=== PATIENT | male | born 1995 | race Caucasian/White ===

== ENCOUNTER 2019-06-13 11:03 | Outpatient (RCR) | payer OTHER, SELFPAY ==
--- NOTE | 2019-06-13 11:21 | BH.COMM_ITS ---
Communication Note - Communication with Client Communication Note: Met with pt to complete initial paperwork. No significant changes since pre-admission screening. Complete [place] Suicide screening and pt was currently moderate risk. No current SI, plan, or intent. Last suicidal ideation was last , 06/05/19 in which pt reports looking up different potential means of completing suicide. Last attempt was over 3 months ago in March in which pt reports taking Zoloft with the intent to walk in front of a train. Reports deciding to walk home instead and expressed that his dogs are his only protective factor. Denies access to any lethal means, reports he is able to keep himself safe at this time. Will meet with individual therapist to complete Safety plan for the weekend.
--- NOTE | 2019-06-13 11:22 | BH.MDN ---
Multi-Disciplinary Note - Note 60-min Individual Time Started:: 09:20 Date: 06/13/19 Purpose of session/treatment goals addressed:: The purpose of this session was to gather information on client's current stressors, symptoms, and treatment goals. Another goal was to build rapport and complete a safety plan. Eye Contact:: Good Motor Activity:: Appropriate Appearance:: Disheveled Speech:: Appropriate Mood:: Anxious, Dysthymic Affect:: Other - incongruent-reports feeling depressed, but often smiling and using humor to deflect. Thoughts:: Linear, Logical, No evidence of hallucinations/delusions noted Staff Interventions:: Therapist used active listening and open-ended questions to explore client's current stressors, symptoms, history, and treatment goals. Therapist used strengths perspective to build rapport and help client identify personal resilience factors. Therapist assessed for risk and completed a safety plan with client. Client Response:: Client responded well to session, open to meeting with therapist. Client receptive to discussing treatment goals and answering questions from therapist. Client reported he has been seeing Chauncey Chandler for outpatient counseling and Chauncey referred client to [facility]. Client reported he has struggled with anxiety and depression for a long time. Client stated, I've never really seen a purpose for my life. Client currently goes to college at [employer] and shared that his symptoms impact client's academic and social functioning. Client shared he will avoid people and miss class because of his anxiety and depression. Client stated he wants to learn how to better manage these symptoms and find meaning in his life. Client receptive to completing a safety plan due to recent suicidal ideations with methods. Client identified his warning signs which included; sleeping too much or not enough, ruminations, negative thinking, avoidance, and not eating. Client also identified negative thoughts that keep him stuck and healthy coping skills he could use. Client's coping skills included; playing with his dogs, playing video games, coloring or painting, and reaching out to his friend. Client identified ways his supports could help client during crisis and client shared his dogs are his reason for living. Client reports ability to maintain safety today and was willing to share this safety plan with his mother and friend. Client denies access to weapons and willing to go to the ER should he feel unsafe over the weekend. Client was smiling and joking throughout session. Client shared he often uses humor to cope with his mental health. Risks/Concerns:: Client denies any active suicidal ideations, plan, or intent as of 06/13/19. Last suicidal ideation was last , 06/05/19 in which client reports looking up different potential means of completing suicide. Client reports ability to maintain safety and was willing to complete a safety plan with this therapist. Feels that he can go to the ER should he feel like he cannot keep himself safe. Protective factors include his dogs and was future oriented throughout session. Client willing to share his safety plan with his mother. Progress Toward Goals/Plan:: Client's first day of IOP, no progress to document. Client reports motivation for treatment and scheduled his sessions for next week. Client endorses a depressed mood, recent suicidal ideations with methods, anhedonia, isolative behaviors, lack of motivation, worthlessness, anxiety, and avoidance behaviors. Client identified his treatment goals to be lessening depression and lessening anxiety. Will continue IOP tx to prevent decompensation, maintain safety, and improve daily functioning. Time Stopped:: 10:13
--- NOTE | 2019-06-16 12:15 | BH.COMM ---
Communication Note - Communication with Client Communication Note: Pt did not show for IOP today. Attempted to reach via phone however VM is full. Left message with emergency contact.
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
[2019-06-18 12:01] VITALS: BP 104/70; PULSE 100; RESP 16; TEMP 36.4
--- NOTE | 2019-06-18 13:06 | BH.MDN ---
Multi-Disciplinary Note - Note 30-min Individual Time Started:: 11:39 Date: 06/18/19 Purpose of session/treatment goals addressed:: Purpose of session was to assess pt's current symptoms and stressors. Session also focused on providing psychoeducation on anxiety and discussing benefits of exposure therapy, as well as begin creating a fear ladder. Eye Contact:: Fair Motor Activity:: Appropriate Appearance:: Disheveled, Casual Speech:: Appropriate Mood:: Anxious, Depressed Affect:: Congruent Thoughts:: Linear, Logical, No evidence of hallucinations/delusions noted Staff Interventions:: Therapist used open ended questions to elicit pt's current symptoms and stressors. Provided supportive feedback and normalized pt anxieties. Therapist provided psychoeducation about anxiety and impact avoidance behaviors has on anxiety. Therapist educated pt about fear ladders and provided pt with homework to start identifying and ranking common anxiety triggers which result in avoidance to begin working on making his own fear ladder focusing on one identified trigger. Client Response:: Pt reported he has been struggling with increased anxiety and depression over the past few days since completing an assignment for school. Shared struggling with negative thoughts about ?what is the point of life if we all . It all feels meaningless and futile?. Shared that these thoughts are further reinforced and increase depressive symptoms when pt begin to think about the type of life he is going to lead. 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 Provided insight into reasoning behind this belief which is pt thoughts of having no control over his anxiety and resigning himself to the thought that he is never going to be able to consistently hold a conversation or feel comfortable in a crowd without becoming anxious or experiencing intrusive thoughts causing panic. Shared this is why he did not call to cancel group or answer any calls on Sunday when he missed scheduled session. Further indicated failing a class in the past due to too many absences. Noted anxiety about talking on the phone. Receptive of beginning to challenge thought that he will never be able to manage anxiety sx and was open to begin discussing how anxiety manifests and potential benefits of anxiety. Reported relating to discussion on impacts of avoidance behaviors on reinforcing anxiety and urges to continue avoiding. Pt agreeable to complete anxiety hierarchy for homework. Risks/Concerns:: Pt reports passive thoughts of earlier this week, but denies current suicidal ideation, plan or intention to date. Indicated an ability to maintain safety and willingness to reach out to supports such he feel unable to maintain safety at any time. Progress Toward Goals/Plan:: Progress noted with pt's increased awareness of negative thought patterns and connection between anxiety and maintaining/reinforcing depressive sx. Pt improved in openness to discuss mental health sx with this therapist and is try different strategies to manage mental health symptoms. Pt recommended to continue IOP to increase emotional regulation, increase healthy supports, and prevent decompensation. Time Stopped:: 12:16
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
--- NOTE | 2019-06-18 13:29 | BH.DR.ITP ---
Initial Treatment Plan - Patient Information Visit Information: ADMISSION DATE: EXPECTED LOS: 4-6 weeks - Problems/Symptoms Problem #1:: Depression Symptom:: sadness, anhedonia, suicidal ideation, fatigue, hopelessness Problem #2:: Anxiety Symptom:: rumination, social anxiety
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
--- NOTE | 2019-06-18 18:46 | BH.MTP_ITS ---
Master Treatment Plan - Patient Information Program Physician:: Dr. Maribel Carcamo Primary Therapist:: MURRAY Irvin - Psychiatric Diagnoses Psychiatric Diagnoses:: Bipolar 2 disorder, most recent episode depression; social anxiety disorder Diagnosis Code(s):: F31.81 - Estimated LOS Estimated LOS (in weeks):: 6 Problem/Goal #1 - Problem/Goal #1 Stated Goal:: Client will reduce depressive symptoms, suicidal ideation, feelings of hopelessness, and anhedonia due to Major Depressive Disorder through Intensive Outpatient Program. Description of Barriers: Client reports low self-esteem, negative thinking, hopelessness, increased educational stress, financial strain, and cognitive distortions that exacerbate symptoms. Functional Impact: Patient is a 23-year-old single male who was referred to the [facility] intensive outpatient program by his outpatient counselor due to worsening depression and anxiety. Reports having suicidal ideation at the time of referral. Patient reports hx of chronic depression and anxiety, though does not typically identify a trigger for worsening sx. Pt states recently his mood and depression got so bad that he spent 5 days barely getting out of bed except to feed his dogs and missed several days of college class as a result. Hx of panic attacks. Reports his biggest stress now is school and some financial stress. Hx of chronic SI. Reports last S.I. one week ago. Reports earlier this month he had a plan to run in front of a train or hang himself with a belt. He states that it has been active at times in the past few weeks where he looks up online how 1 dies with certain methods of suicide. He says that now it does not feel active. Dogs and mother are protective factors. Currently endorses decreased appetite, hopelessness, helplessness, irregular sleep, anhedonia, low motivation, fatigue, isolation, poor concentration, SI, and ruminating thoughts causing anxiety. Current sx impacting occupational, social, and daily functioning. Goal Relevant Strengths/Supports: Client is intelligent, honest, and reports motivation to improve mental health sx. - Objectives Objective #1 Stated Objective: Pt will decrease depressive symptoms AEB pt?s score on the DSM 5 cross-cutting measure and improve pt?s daily functioning. Interventions: Through groups and individual therapy, pt will be provided with education on cognitive distortions, mistaken beliefs, and identifying and combating negative self-talk. Therapist will assist pt with getting back into the activities she once enjoyed as well as increasing healthy coping strategies. Discharge Criteria: Pt will have met this goal when pt?s score on the DSM 5 cross cutting measure for depression has been decreased and per pt?s report daily functioning has improved. Target Date: 07/25/19 Review Date: 07/11/19 Objective #2 Stated Objective: Client will learn and utilize 2-3 healthy coping strategies to manage depressive symptoms and reduce negative thinking. Interventions: Therapist will assist client in learning internal coping strategies and thought challenging skills to manage depressive symptoms, along with helping client identify triggers. Discharge Criteria: Client will have achieved this goal when can verbalize and has practiced at least 2 healthy coping strategies and report reduced depressive thinking. Target Date: 07/25/19 Review Date: 07/11/19 Problem/Goal #2 - Problem/Goal #2 Stated Goal:: Reduce overall frequency, intensity, and duration of the anxiety so that daily functioning is not impaired. Description of Barriers: Client reports low self-esteem, negative thinking, hopelessness, increased educational stress, financial strain, and cognitive distortions that exacerbate symptoms. Functional Impact: Patient is a 23-year-old single male who was referred to the [facility] intensive outpatient program by his outpatient counselor due to worsening depression and anxiety. Reports having suicidal ideation at the time of referral. Patient reports hx of chronic depre ssion and anxiety, though does not typically identify a trigger for worsening sx. Pt states recently his mood and depression got so bad that he spent 5 days barely getting out of bed except to feed his dogs and missed several days of college class as a result. Hx of panic attacks. Reports his biggest stress now is school and some financial stress. Hx of chronic SI. Reports last S.I. one week ago. Reports earlier this month he had a plan to run in front of a train or hang himself with a belt. He states that it has been active at times in the past few weeks where he looks up online how 1 dies with certain methods of suicide. He says that now it does not feel active. Dogs and mother are protective factors. Currently endorses decreased appetite, hopelessness, helplessness, irregular sleep, anhedonia, low motivation, fatigue, isolation, poor concentration, SI, and ruminating thoughts causing anxiety. Current sx impacting occupational, social, and daily functioning. Goal Relevant Strengths/Supports: Client is intelligent, honest, and reports motivation to improve mental health sx. - Objectives Objective #1 Stated Objective: Client will manage moments of increased stress and anxiety by learning to identify 2-3 warning signs and triggers for when becoming overwhelmed and implement 2-3 calming skills and problem solving strategies to realistically addressing worries. Interventions: Therapist will encourage client to use self-awareness strategies and assist client in identifying times of day, or specific thinking patterns indicating potential warning signs/triggers for increased anxiety. Therapist will teach client problem-solving strategies involving defining a problem, brainstorming solutions, selecting and implementing various solutions as well as calming interventions for reducing anxiety. Discharge Criteria: Client will have met this goal when can identify at least 2 warning signs and 2 triggers for increased stress and anxiety. When recognizing warning signs pt will be able to implement 2-3 problem solving and calming strategies for reducing anxiety and realistically addressing worries. Target Date: 07/25/19 Review Date: 07/11/19 Objective #2 Stated Objective: Pt will decrease anxiety symptoms AEB pt?s score on the DSM 5 cross-cutting measure and improve pt?s daily functioning. Interventions: Through groups and individual therapy, pt will be provided with education on calming skills, anxiety management strategies, warning signs and triggers. Therapist will assist pt with getting back into the activities he once enjoyed as well as increasing healthy coping strategies. Discharge Criteria: Pt will have met this goal when pt?s score on the DSM 5 cross cutting measure for depression has been decreased and per pt?s report daily functioning has improved. Target Date: 07/25/19 Review Date: 07/11/19
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
--- NOTE | 2019-06-23 10:15 | BH.SGPN.GN ---
Behaviors/Verbalizations/Mental Status: []Eye contact is good. Motor activity is appropriate. Appearance is casual. fair hygiene. Speech is Appropriate. Mood is anxious. Affect is congruent. Thoughts are linear and logical. No evidence of psychosis. Client Response/Progress/Benefit: []Pt was a mostly passive participant throughout session AEB pt providing limited input during discussion, however engaged in activity and listened attentively to others. Worked with peers to identify and define pitfalls in mental health. Attentive on psycho-education on the impact of how one kate with or manages pitfalls in regards to mental health. Group worked together to identify what keeps us stuck or vulnerable to pitfalls which included; loss of motivation, fear of unknown, anxiety, unhealthy coping, self-sabotage, self-fulfilling prophecy, impatience, and self-doubt. Pt stated an example of a personal pitfall is feeling apathetic which results in not caring about the outcome so goes with the most convenient option even if not the healthiest. Benefited from increased awareness on the impact that pitfalls can have on mental health. Narrative Note: []
--- NOTE | 2019-06-23 11:16 | BH.SGPN.GN ---
Behaviors/Verbalizations/Mental Status: []Client alert and oriented, disheveled appearance. Eye contact fair. Motor activity appropriate. Speech within normal limits. Affect flat, mood depressed. Thoughts linear, logical, no signs of hallucinations or delusions. Client Response/Progress/Benefit: []Client receptive of session, engaged throughout AEB client taking notes and participating when prompted. Processed activity with group and connected it to overcoming personal pitfalls in life. Client completed a worksheet where she identified personal pitfalls impacting mental health progress. Identified pitfalls as: apathy, isolation, avoidance, self-destructive behaviors, and not caring for himself. Client recognized that with awareness and use of healthy coping skills, it is possible to prevent or better manage pitfalls. However, client reported he struggles with having success in using coping skills. Attentive during psychoeducation on strategies to overcome pitfalls. Client stated he will work on preventing pitfalls by focusing on one thing at a time and being present. Benefited from identifying personal pitfalls and strategies to overcome these pitfalls. Limited progress due to client recently starting IOP. Will continue IOP tx to prevent decompensation of depressive symptoms and improve daily functioning. Narrative Note: []
--- NOTE | 2019-06-25 09:04 | BH.SGPN.GN ---
Behaviors/Verbalizations/Mental Status: []Pt alert and orient x3. Eye contact good. Motor activity is appropriate. Appearance is casual. Speech is Appropriate. Mood is dysthymic, anxious. Affect is congruent. Thoughts are linear and logical. No evidence of psychosis. Reviewed daily check in sheet and no reports of suicidal ideations or intent. Client Response/Progress/Benefit: []Pt responded well to session, listening throughout discussion and increased willingness to engage with group. Reports emotion for the day as ?dread? and indicated that this is due to not wanting to attend class following group for the day. Pt identified current mental health win as getting an ?A? grade on a test he had been worried about. Indicated feeling relieved as a result. Additional win identified as successfully finding his way to IOP group without getting anxious about driving here despite not having directions as his phone had . Benefited from support of the group and identifying small areas of progress. Current stressor identified as reports of increased ?eye floaters? which pt is unsure whether these are hallucinations or something wrong with his eyes. Willing to follow-up with eye Dr. as well as psychiatrist should these persist. Progress noted in pt self-report of increased use of calming skills while driving skills. Recommended continued IOP tx to promote healthy change behaviors, increase anxiety management, and reduce overall mental health sx severity. Narrative Note: []
--- NOTE | 2019-06-25 15:30 | BH.MDN_ITS ---
Multi-Disciplinary Note - Note 60-min Individual Time Started:: 10:33 Date: 06/25/19 Purpose of session/treatment goals addressed:: Purpose of session was to assess pt's current symptoms, stressors, and treatment goal progress. Session also focused on exposure homework review, providing psychoeducation on Bipolar II, and identifying strategies for reducing negative thought patterns. Eye Contact:: Good Motor Activity:: Appropriate Appearance:: Casual Speech:: Appropriate Mood:: Anxious, Depressed Affect:: Other - incongruent; pt laughing and smiling as he discussed depressed thoughts and concerns regarding current stressors Thoughts:: Linear, Logical, No evidence of hallucinations/delusions noted Staff Interventions:: Therapist used open ended questions to elicit pt's current symptoms and stressors. Utilized supportive feedback and empathic responses to provide emotion validation. Reviewed exposure therapy homework. Therapist provided psychoeducation on Bipolar II disorder and role of thought patterns in maintaining depressive sx. Used SC techniques to promote change behaviors. Therapist introduced and provided homework for pt to complete positive thought log. Client Response:: Pt receptive of session, engaged throughout. Pt reported he has been doing ?alright? but has recently been struggling with increased fatigue and is often sleeping for several hours during the afternoon. Shared that he has been struggling with motivation to do much else when not in class as well. Pt indicated previously experiencing periods of time in which he has had decreased energy and increased sleep followed by nights in which he is unable to sleep at all. Pt receptive of discussing characteristics associated with recent diagnosis of Bipolar II disorder. Indicated connecting with several of the depression related characteristics including isolation, suicidal ideation, apathy, and hopelessness. Able to recognize various symptoms of hypomania he has experienced in the past including grandiose thoughts associated with his ability to develop new talents, starting several new hobbies he believes would be ?more difficult for others? without sticking to them, decreased sleep, and increased agitation. Shared that he feels he may have been and is still currently exhibiting depressive symptoms. Open to discussing strategies for reducing depression by engaging in activities pt finds enjoyable. Noted no longer enjoying activities he used to such as soccer and video games and would like to develop new activities of interest. Expressed recently beginning oil painting in the past 2 weeks and indicated willingness to continue to participate in this activity. Pt described plans to use opposite action if beginning to lack motivation to do so and shared he could use the strategy of ?just try it for 5 minutes to start out and if I don?t want to keep doing it I?ll tell myself ?okay, only 5 more minutes and you can stop??. Shared this has helped some in the past. He indicated not completing exposure worksheet provided in prior session but verbally reviewed what makes him anxious about driving. Shared anxieties then turn into negative thoughts and beliefs of ?I?m always going to struggle with this and just end up working some pointless job I hate?. Reports skepticism in using positive self- talk to increase motivation, indicating ?it just feels like sugar coating?. Receptive of challenging these thoughts and indicated willingness to begin tracking daily neutrals or positives in effort to identify positives he may be overlooking in daily life. Risks/Concerns:: Pt reports denies any current suicidal ideation, plan or intention to date, 06/25/19. Expressed concerns regarding issues with his eyes in which he has experienced ?eye floaters? and is unsure if this is a physical problem or if he is experiencing hallucinations. Willing to schedule eye doctor appointment and pt concerns will be discussed with psychiatry. Progress Toward Goals/Plan:: Progress limited. Pt reports ongoing difficulties in challenging negative thoughts, increased sleep and isolation, as well as continued anxiety. Progress noted in pt reports of successfully attending all college courses for the week despite lacking motivation and desire to do so. Additionally reports increased ability to manage some anxious thoughts while driving, however went on to indicate that anxiety had decreased due to apathy as to whether or not he made it to his destination which signifies some regression. Pt continues to express reluctancy to want to challenge thoughts which may be maintaining depression and anxiety. Noted he has been able to begin engaging in new calming activities such as oil painting. Pt recommended to continue IOP to increase emotional regulation, increase healthy supports, and prevent decompensation. Time Stopped:: 11:35
--- NOTE | 2019-06-27 09:05 | BH.SGPN.GN ---
Behaviors/Verbalizations/Mental Status: [] Eye contact is poor. Motor activity is appropriate. Appearance is casual. Speech is appropriate. Mood is depressed. Affect is flat. Thoughts are linear and logical. No evidence of psychosis. Reviewed daily check in sheet and reports 4/5 for suicidal ideations and 1/5 for intent. Situational stressors Client Response/Progress/Benefit: [] Pt participated at times during group discussion. Noted some mental health wins as sleeping better and feeling more rested. He talked at length regarding situational stressors regarding school, car, and finances. Discussed how a flat tire resulted in missing classes for several days as it took a great deal of time before they could get the new tires for his car. Ruminated on this and the impact that this stressor has on him and his life. Group provided feedback and challenged the negative thoughts and cognitive distortions however pt appeared reluctant to challenge or try to improve his current mood. Emotions for today is despair.No progress noted. Benefited from group support and encouragement. Will continue in IOP to maintain safety, increase healthy coping skills, and prevent decompensation. Narrative Note: []
--- NOTE | 2019-06-27 10:15 | BH.SGPN.GN ---
Behaviors/Verbalizations/Mental Status: [] Eye contact is good. Motor activity is appropriate. Appearance is casual. Speech is Appropriate. Mood is depressed. Affect is flat. Thoughts are linear and logical. No evidence of psychosis. Client Response/Progress/Benefit: [] Pt was an active participant in group discussion and activity. Attentive during psychoeducation. Provided feedback on the quote of the day. Worked with peers on defining goals (purposes), identifying benefits of goal-setting, and providing feedback during psycho-education on SMART goals. Engaged in activity. Benefited from group by learning the mental health benefits of setting goals that are specific, measurable, attainable, relevant, and time-specific. Will continue in IOP to maintain safety, prevent decompensation, and increase coping skills. Narrative Note: []
--- NOTE | 2019-06-27 11:15 | BH.SGPN.GN ---
Behaviors/Verbalizations/Mental Status: [] Eye contact is good. Motor activity is appropriate. Appearance is neat. Speech is Appropriate. Mood is depressed. Affect is flat. Thoughts are linear and logical. No evidence of psychosis Client Response/Progress/Benefit: [] Pt was an active participant in group discussion and activity. Provided appropriate feedback to peers. Pt choose the goal; [place] a picture this weekend. When asked why this goal was important and beneficial to his mental health he stated; Its fun, distracting, and I want to increase my skills. Identified the following barriers to completing this goal which included;over-thinking to the point of inability and my mood. Group provided feedback on whether this goal met the standards of a SMART goal and a discussion was had on strategies to help support his goals and overcome the barriers. Benefited from this group by practicing how to develop a short-term SMART goals related to mental health. Narrative Note: []
--- NOTE | 2019-06-30 09:05 | BH.SGPN.GN ---
Behaviors/Verbalizations/Mental Status: []Pt alert and orient x3. Eye contact good. Motor activity is appropriate. Appearance is casual. Speech is Appropriate. Mood is dysthymic, anxious. Affect is congruent. Thoughts are linear and logical. No evidence of psychosis. Reviewed daily check in sheet and no reports of suicidal ideations or intent. Client Response/Progress/Benefit: []Pt responded well to session AEB pt listening attentively to others and willingness to share with the group. Pt reported current emotion as ?dread? and indicated this is due to discovering his grandfather is in the hospital. Shared struggling with living so far from his grandfather. Receptive of supportive feedback and coping suggestions offered by group. Pt did well to identify mental health wins. Indicating a mental health positive was completing the goal he had set for himself in goal setting group on Sunday. Expressed successfully completing two paintings but struggled in recognizing this as an accomplishment. Continues to struggle with disqualifying the positives. Pt identified additional positive as being able to convince himself to come to group despite not wanting to. Pt progress in increased engagement in treatment setting. Pt appearing to benefit from ongoing support provided by group. Pt recommended to continue IOP to increase healthy coping, challenge distorted thoughts, and prevent decompensation. Narrative Note: []
--- NOTE | 2019-06-30 11:20 | BH.SGPN.GN ---
Behaviors/Verbalizations/Mental Status: []Client alert and oriented, neatly dressed and groomed. Eye contact good. Motor activity appropriate. Speech within normal limits. Affect constricted, mood dysthymic. Thoughts linear, logical, no signs of hallucinations or delusions. Client Response/Progress/Benefit: []Client responded well to session, quiet, but participating when prompted. Group discussed the mental health benefits of recognizing strengths which included; improved self-esteem, better coping skills, and improved mood. Client shared it is important to give oneself opportunities to use their strengths. Client able to identify personal strengths he possesses which included; empathy, being open-minded, and being a good bro or friend. Client stated these strengths help client gather new perspectives and connect with others. Group discussed strategies to build and improve strengths which included; practicing self-compassion, affirmations, applying strengths or ?use them,? self-care, and keeping track of wins. Appeared to benefit from recognizing personal strengths and identifying strategies to improve strengths. Progress noted as client has been attending IOP more consistently which is significant as client has a history of avoidance behaviors. will continue IOP tx to prevent decompensation of depression and anxiety. Narrative Note: []
--- NOTE | 2019-07-04 09:00 | BH.SGPN.GN ---
Behaviors/Verbalizations/Mental Status: [] Eye contact is good. Motor activity is appropriate. Appearance is casual. Speech is Appropriate. Mood is depressed. Affect is flat. Thoughts are linear and logical. No evidence of psychosis. Reviewed daily check in sheet and pt reports 2/5 for suicidal ideations and 1/5 for intent. Therapist notified Client Response/Progress/Benefit: [] Pt participated at times during group discussions however chose not to check-in. Smiling at times and provided some feedback to peers. Attentive. Daily symptom tracker notes 4/5 for hopelessness, 3/5 for anxiety and 2/5 for panic. No progress noted. Will continue in IOP to maintain safety, prevent decompensation, and increase health coping skills. Narrative Note: []
--- NOTE | 2019-07-04 10:13 | BH.SGPN.GN ---
Behaviors/Verbalizations/Mental Status: []Client alert and oriented, casually dressed and groomed. Eye contact good. Motor activity appropriate. Speech within normal limits. Affect constricted, mood anxious and depressed. Thoughts linear, logical, no signs of hallucinations or delusions. Client Response/Progress/Benefit: []Client was a semi-active participant AEB completing worksheet and listening attentively to peers. The group discussed the quote and how the emotion anger is not good or bad, but one can respond to anger in healthy or harmful ways. Client worked with the group to define anger and its causes, as well as the internal and external impacts of anger. Group identified potential consequences of unhealthy management of anger to include: losing relationships, guilt, decreased self-esteem, lashing out, and worsening mental health symptoms. Client identified underlying factors of own anger which included: feeling disrespected or invalidated, feeling others don?t understand, and unmet expectations. Client stated avoiding, breaking pencils, hypomania, and pacing as responses he has when feeling angry. Benefited from group by increasing awareness of the negative impacts of unmanaged anger and underlying factors that contribute to anger. Progress noted as client reports increased ability to identify thought challenging responses, though continues to struggle in this area as he reports not believing reframing statements. Will continue IOP tx to prevent decompensation, promote healthy change behaviors, and improve mood stability. Narrative Note: []
--- NOTE | 2019-07-04 11:15 | BH.SGPN.GN ---
Behaviors/Verbalizations/Mental Status: []Pt eye contact good, casually dressed, fair hygiene, motor activity appropriate, speech normal rate and tone, mood anxious and dysthymic, constricted affect, thoughts linear and intact, no evidence of delusions or hallucinations. Client Response/Progress/Benefit: []Pt engaged participant throughout group AEB pt providing input throughout discussion and engaged in activity. Pt did well to challenge self to complete the group activity and incorporate anger management/emotion regulation skills in order to do so. Pt stated he used laughter to help him cope with frustrations during activity. Pt worked with the group to identify the various barriers faced in the activity as well as skills used to successfully complete the task at hand without becoming dysregulated or uncontrollably angry. Group brainstormed with group healthy coping skills to help manage anger which included: mindfulness, crying, walking, exercise, talking to support and petting an animal. He appeared to benefit from brainstorming with the group potential strategies to manage anger in healthy ways. Pt identified plans to work on finding healthier ways to express his anger because recognizes current coping is not healthy. Recommended continued IOP to increase healthy coping, challenge distorted thoughts, and prevent decompensation. Narrative Note: []
== END 2019-07-05 23:59 ==
LOC: BHIOP 11:03
PROVIDERS: Referring Provider Psychiatry & Neurology Psychiatry; Visit Provider Psychiatry & Neurology Psychiatry
DX: F31.81 Bipolar II disorder (principal); F41.8 Other specified anxiety disorders; R45.851 Suicidal ideations; Z79.899 Other long term (current) drug therapy; Z91.5 Personal history of self-harm; Z62.810 Personal history of physical and sexual abuse in childhood
CPT/HCPCS: H0035; 90832; 90834; 90837; 90853

== ENCOUNTER 2019-07-07 09:00 | Outpatient (RCR) | payer OTHER, SELFPAY ==
[2019-07-06 01:04] VITALS: BP 104/70; PULSE 100; RESP 16; TEMP 36.4
--- NOTE | 2019-07-06 23:37 | BH.MDN ---
Multi-Disciplinary Note - Note 45-min Individual Time Started:: 12:25 Date: 07/04/19 Purpose of session/treatment goals addressed:: The purpose of this session was to address current symptoms, stressors, and negative thoughts impacting metal health and tx goal progress. Another goal was to learn maintenance cycles and introduce concept of opposite action as a component of behavioral action. Eye Contact:: Good Motor Activity:: Appropriate Appearance:: Casual Speech:: Appropriate Mood:: Anxious, Depressed Affect:: Congruent Thoughts:: Linear, Logical, No evidence of hallucinations/delusions noted Staff Interventions:: Therapist used active listening and open-ended questions to explore client's current stressors, symptoms, and negative thoughts. Therapist provided psychoeducation on maintenance cycles and ways to break unhealthy maintenance cycles. Therapist taught client about opposite action and the concept of behavioral activation. Therapist gave empathic responses and supportive feedback. Therapist gave client homework to practice self-awareness of distortions. Client Response:: Client responded well to session, open to meeting with therapist. Client shared this week was rough and reported that he attributes this to his sleep schedule being ?messed up?. Further explained that he has been staying up all night and sleeping most of the day for the past 2 nights. Shared wanting to get his sleep schedule back on track as he believes this has begun to impact his mental health as well. Discussed feeling more hopeless and depressed this week as he has spent most of his time sleeping outside of attending class. Shared that his poor sleep schedule has resulted in pt missing IOP group on Sunday as well. Expressed that he has not painted this week either which is an activity he has been doing for self-care. However, with further exploration, it was discovered that pt did more than he gave himself credit for. Pt was not as active as he would like, but he was still able to accomplish going to class despite not staying for entire duration of the class, additionally hung out with friends at the mall. Pt receptive to learning about maintenance cycles and connected with the maintenance cycle for depression. Gave examples of his own current maintenance cycles and ways his reluctance to look at positives in each day continue to maintain depression. Pt receptive of discussion on using opposite action as a means of breaking out of depressive maintenance cycle and willing to set small weekend goals. Identified plans to spend time with his mother, try and paint one picture, and begin tracking small daily positives. Risks/Concerns:: Client denies active suicidal ideations, plan, or intent as of 07/04/19. He reports experiencing passive SI over the past few days but indicates an ability to maintain safety. Future oriented and expressed plans to spend time with his mother and call friends to hangout this weekend. Progress Toward Goals/Plan:: Client appears to be responding well to treatment when he is in attendance, however has struggled to maintain consistent attendance which may be impacting ability to progress outside of treatment environment. Pt reports inconsistent sleep and negative thinking which continue to reinforce depression. Pt continues to report mood cycling, but he has been attempting to implement healthy coping skills, such as painting, which has helped client not stay stuck in depressive cycles as long. However, continues to struggle with consistency in this area. Pt continues to struggle with ruminations, isolation, and negative thinking. Will continue IOP tx to improve mood stability, promote healthy coping skills and boundaries, and reduce negative thinking. Time Stopped:: 13:05
--- NOTE | 2019-07-07 11:25 | BH.SGPN.GN ---
Behaviors/Verbalizations/Mental Status: []Pt eye contact fair, casually dressed, hygiene fair, motor activity appropriate, speech normal rate and tone, mood depressed, constricted affect, thoughts linear and intact, no evidence of delusions or hallucinations. Client Response/Progress/Benefit: []Client engaged during discussion and listened attentively to peers. Client stated his fixed thought is I am not a good communicating and never will be. Client did well to apply cognitive restructuring to reframe fixed thought, transforming fixed thought from previous group to a growth thought of ?I can practice my communication and get better.? Client shared his fixed thoughts have maintained his depressed state and has held him back from new opportunities. Client participated as the group brainstormed strategies to promote growth-mindset thinking. Benefitted from discussing benefits of growth mindset and brainstorming strategies for prompting growth-mindset. Will continue IOP tx to continue use of healthy coping, decrease anxiety and prevent decompensation. Narrative Note: []
--- NOTE | 2019-07-07 11:52 | BH.COMM ---
Communication Note - Communication with Client Communication Note: Therapist provided a supportive environment and emotional support as pt discussed his desire to withdraw from college for the semester to increase attendace in IOP tx and focus more on improving mental health sx and reducing depressive thoughts causing suicidal ideation. Pt mother supportive and in agreement with plan for pt to begin attending IOP groups 4 days a week for the next two weeks and the re-evaluating.
--- NOTE | 2019-07-08 09:00 | BH.SGPN.GN ---
Behaviors/Verbalizations/Mental Status: [] Eye contact is good. Motor activity is appropriate. Appearance is casual. Speech is Appropriate. Mood is depressed. Affect is flat. Thoughts are linear and logical. No evidence of psychosis. Reviewed daily check in sheet and pt reports 1/5 for suicidal thoughts and 1/5 for intent. This is baseline for patient and marked improvement from yesterday. Client Response/Progress/Benefit: [] Pt was an active participant in group discussion. Daily symptom tracker notes 4/5 for hopelessness and 3/5 for anxiety. Shared that he was able to get some uninterrupted sleep yesterday which has helped his mood this AM. Emotion for today is aloof. Reports decrease in appetite with loss of 10lbs this past month. Engaged with group discussion on the importance to boundaries and obstacles that get in the way of boundary-setting. Progress noted per pt report. Will continue in IOP to maintain safety, improve health coping, and increase functioning. Narrative Note: []
--- NOTE | 2019-07-08 10:13 | BH.SGPN.GN ---
Behaviors/Verbalizations/Mental Status: []Client alert and oriented, casually dressed and groomed. Eye contact good. Motor activity appropriate. Speech within normal limits. Affect congruent, mood anxious, dysthymic. Thoughts linear, logical, no signs of hallucinations or delusions. Client Response/Progress/Benefit: []Pt receptive to session, participating throughout. Provided input as the group brainstormed the positive and negative aspects of stress on physical and mental health. Group noted that distress can cause physical health impacts, result in relationship tension, lead to avoidance, and impact emotion regulation. Shared benefits of stress as: increased motivation, improved resilience, improved self-esteem, and increased performance. Client?s current stressors included; existential thoughts, social situations, car problems, mental health, family relationships, and future career choices. Client stated when stress is too high client will experience increased anxiety or become irritable or shut down/avoid. Appeared to benefit from gaining awareness of own current stressors and learning about the impact stress has on overall wellbeing. Progress inconsistent as his mood continues to be impacted by external events and pt struggles in consistent application of coping skills for managing these. Recommend continued IOP tx to promote use of healthy coping skills and to further reduce mental health symptoms. Narrative Note: []
--- NOTE | 2019-07-08 11:20 | BH.SGPN.GN ---
Behaviors/Verbalizations/Mental Status: []Pt eye contact good, casually dressed, motor activity appropriate, speech normal rate and tone, mood euthymic, slightly anxious, congruent affect, thoughts linear and intact, no evidence of delusions or hallucinations. Client Response/Progress/Benefit: []Pt engaged participant in session as evidenced by pt listening attentively to others and providing input at times during session. Pt worked with the group to complete the challenge activity. At one point during activity pt became upset that the group didn't succeed with one part of activity so he threw a marker against the wall. Pt quickly able to recover and recognized how he dealt with his frustration was not healthy. Pt actively listening during discussion about the 4 A's of managing stress. Pt identified he wants to focus on decreasing the impact of his grandparents declining health stressor. Pt stated he will work on this stressor by accepting his grandparent's health is out of his control, instead focusing on his response to this stressor. Pt seemed to benefit from increased awareness of the impact of stress on mental health and increasing repertoire of stress management strategies. Pt to continue in IOP to prevent decompensation, increase healthy coping skills, and challenge distorted thoughts. Narrative Note: []
--- NOTE | 2019-07-08 12:41 | BH.MDN ---
Multi-Disciplinary Note - Note 45-min Individual Time Started:: 12:26 Date: 07/08/19 Purpose of session/treatment goals addressed:: The purpose of this session was to address current symptoms and stressors impacting metal health and tx goal progress. Another purpose was to review previously learned maintenance cycles, identify strategies for breaking cycle of depression, and develop a small behavioral activation goal for today. Eye Contact:: Good Motor Activity:: Appropriate Appearance:: Casual Speech:: Appropriate Mood:: Anxious, Dysthymic Affect:: Congruent Thoughts:: Linear, Logical, No evidence of hallucinations/delusions noted Staff Interventions:: Therapist used active listening and open-ended questions to explore client's current stressors, symptoms, and coping skills used. Therapist reviewed psychoeducation on maintenance cycles and ways to break unhealthy maintenance cycles. Therapist applied PR techniques to aid pt in identifying one small opposite action goal to reduce use of isolation and sleep as a means of coping with depression. Therapist gave empathic responses and supportive feedback. Therapist again provided client homework to practice self-awareness of distortions to review in next session. Client Response:: Client receptive of session, open to meeting with therapist. Client shared feeling more ?relieved? and slightly less hopeless now that he no longer has the educational and financial stress of attending school. Shared that he is somewhat reluctant to believe that therapy will truly ?fix me?. Receptive of discussion on therapeutic expectations to improve his ability to cope with his mental health sx and reduce current anxiety and depression levels. Reports understanding that therapy does not completely ?cure? mental illness but instead provides him with tools for sx reduction and management. Pt indicated that he had not completed prior assigned homework to review and identify cognitive distortions he relates with. Indicated ?I forgot about it with everything else going on? and shared willingness to do prior to next session on 07/09. Pt attentive while reviewing role of thoughts in anxiety and depression maintenance cycles. Discussed that isolation and sleeping during daytime hours as two behaviors that may be impacting depression and increasing his desire to avoid social settings. Shared willingness to identify a small opposite action goals to complete today as well as while not in IOP group to prevent isolating and sleeping most of the day. Pt shared that he could try and reach out to his friend Lexx to get food and play video games tonight and that they could go together to the pet store on . Pt indicated planning to get an aquarium for his room as he enjoys fish and it will give him a sense of purpose as he will be responsible for their wellbeing. Risks/Concerns:: Client denies suicidal ideations, plan, or intent as of this date 07/08/19. He indicates an ability to maintain safety. Future oriented and willing to seek help should he need. Progress Toward Goals/Plan:: Client reports improved mood since withdrawing from college yesterday and indicated no suicidal ideation on this date which is progress. He expressed reduced hopelessness and increased motivation to improve mental health sx. Pt has been able to successfully attend two IOP days in a row which is indicative of progress. Pt continues to report depressed and anxious moods, but he has been continuing to attempt to implement healthy coping skills, such as painting, which has helped client not stay stuck in depressive cycles as long. Continues to struggle with consistency in this area. Pt continues to struggle with ruminations, isolation, and negative thinking. Willing to develop a small goals for reducing isolation and indicates plans to hangout with a friend this evening and on when not in IOP attendance. Will continue IOP tx to improve mood stability, promote healthy coping skills, prevent decompensation, and reduce negative thinking. Time Stopped:: 13:02
--- NOTE | 2019-07-09 10:15 | BH.SGPN.GN ---
Behaviors/Verbalizations/Mental Status: []Pt eye contact good, casually dressed, motor activity appropriate, speech normal rate and tone, mood anxious, constricted affect, thoughts linear and intact, no evidence of delusions or hallucinations. Client Response/Progress/Benefit: []Client responded well to session, engaged in activity and actively listening as well as providing input to discussion. Engaged in activity about facts and statistics of mental illness. Group connected with the mental health statistics, recognizing the prevalence of mental health. Group brainstormed strategies to combat social and perceived stigma which included: educating others, no longer using negative labels about mental illness, being open about mental health, and not using deflection like humor or joking to minimize symptoms. Client reported he will practice being more honest about mental health and how he is truly feeling in an effort to reduce social and perceived mental health stigma. Appeared to benefit from increasing awareness of strategies to combat stigma. Will continue IOP tx to decrease anxious symptoms, improve emotional regulation and prevent decompensation. Narrative Note: []
--- NOTE | 2019-07-09 10:15 | BH.SGPN.GN ---
Behaviors/Verbalizations/Mental Status: [] Eye contact is good. Motor activity is appropriate. Appearance is casual. Speech is Appropriate. Mood is depressed. Affect is flat. Thoughts are linear and logical. No evidence of psychosis. Client Response/Progress/Benefit: [] Active participant in group discussions. Attentive during psycho-education. Worked with peers to provide input on definition of social stigma and discussed some common stigma associated with mental health which included; laziness, labeled as crazy, attention-seeking, lying, making excuses, they belong locked up, and they are unstable. Group also discussed the impact of this stigma which includes; making them feel less than others, causes more depression, leads to isolation, reinforces negative beliefs, and often they believe the labels placed on them. Group also identified ways that they reinforce mental health stigmas by; making jokes about it, not standing up for themselves, and by minimizes their symptoms. Benefited from group though increased insight and awareness on mental health stigma and its impact. Will continue in IOP to maintain safety, prevent decompensation, and increase healthy coping skills. Narrative Note: []
--- NOTE | 2019-07-09 12:16 | PCM.BH.PN_ITS ---
Progress Note Progress Note: History of Present Illness/Interim History: [] Patient is a 23-year-old single male who is seen in follow-up at the [facility] program. I last saw the patient about 3 weeks ago and at that time the Seroquel dose was increased. Patient says that he falls asleep easier now and is still waking up around 5 or 6 in the morning. He is getting about 6 hours of a night of good sleep though. He was having daily suicidal ideation and he states that for the past few days he has had less suicidal ideation. He did make a decision to drop out of school few days ago and this may be has lessened his stress level. He is his mood is a little less depressed today. He states that he enjoyed eating [employer] for the first time with friends yesterday. In addition he is obtained a fish tank and he is having fun researching the fish and how to set up his tank. He states that when he does have suicidal thoughts he feels it is more passive now. His appetite is still poor and he has lost weight in the past few weeks. He has some fatigue but he does not feel like he wants to sleep all the time now which is an improvement. Current Psychiatric Medications: [] Quetiapine 150 mg p.o. nightly; vitamin D 50,000 IUs p.o. weekly; Lamictal 200 mg p.o. nightly; hydroxyzine 50 mg up to 3 times daily Mental Status Examination: [] Patient is a 23-year-old single male who appears normal for stated age but very pale. He is casually dressed and groomed with much better hygiene today. There is no odor. He is cooperative and pleasant during the interview. He has no psychomotor agitation or retardation. Speech is normal rate and rhythm and fluent with no pressure. Mood remains somewhat depressed. Affect remains constricted but he does brighten up when discussing his fish tank. Thought process is goal-directed and organized. Thought content: Fleeting passive suicidal ideation in the past few days. No evidence of hallucinations or delusions. No evidence of active suicidal ideation in the past 2 or 3 days and no evidence of homicidal ideation. Judgment is intact. Insight: Some present. Impulsivity low to moderate Diagnoses: [] [place] I: [] Bipolar 2 disorder, most recent episode depressed; social anxiety disorder [place] II: [] Avoidant traits [place] III: [] Negative [place] IV:[]] Primary support, financial issues Plan: [] Patient will continue the IOP program at [facility] as the structure, support, education, group and individual therapy will hopefully prevent worsening of the patient's symptoms which might require hospitalization. He felt safe during the interview and agrees to tell us if he does not feel safe at any time or to go to the emergency room. The risks, options, possible side effects and complications of the medications were discussed with the patient and he understands and accepts these. The patient agrees to increase his Seroquel to 200 mg p.o. nightly. No other medication changes were made. He will continue to follow-up with outpatient providers.
--- NOTE | 2019-07-11 09:05 | BH.SGPN.GN ---
Behaviors/Verbalizations/Mental Status: [] Eye contact is good. Motor activity is appropriate. Appearance is casual. Speech is Appropriate. Mood is depressed. Affect is flat. Thoughts are linear and logical. No evidence of psychosis. Reviewed daily check in sheet and pt reports 1/5 for suicidal thoughts and 0/5 for intent. This is baseline. Client Response/Progress/Benefit: [] Pt participated at times during the group discussion. Emotion for today is aloof. Daily symptom tracker notes 4/5 for hopelessness, 3/5 for anxiety, and 1/5 for panic and agitation. Identified a mental health win as buying fish for his fish tank. Talked about the mental health benefits of having fish as well as his other pets. Poor sleep last night. Check-in was brief and superficial. Did provided appropriate feedback to peers. Some progress noted. Self-care. Benefited from group support, encouragement, and feedback. Will continue in IOP to maintain safety, prevent decompensation, and increase healthy coping/thought stopping skills. Narrative Note: []
--- NOTE | 2019-07-11 10:08 | BH.SGPN.GN ---
Behaviors/Verbalizations/Mental Status: []Client alert and oriented, casually dressed and groomed. Eye contact good. Motor activity appropriate. Speech within normal limits. Affect congruent, mood anxious and dysthymic. Thoughts linear, logical, no signs of hallucinations or delusions. Client Response/Progress/Benefit: []Client responded well to session, contributed to discussion of the quote and reported connecting to idea that we control our response to life?s events. Client connected with the group topic of crisis and did well to work with group to define crisis. Group identified examples of potential crisis to include loss of a loved one, relationship problems, divorce, job loss, and medical problems. Client agreed with peers that anything can lead to a crisis. Connected with discussion on how coping with external crisis by using unhealthy coping skills could result personal crisis. Group identified unhealthy coping skills to include; using substances, sleep, avoidance/isolation, anger outbursts, suicidal thoughts, and self-harm. Group reported that it is important to have awareness of warning signs in order to prevent crisis. Group identified warning signs for crisis and Client completed the personal warning signs worksheet. Identified crisis warning signs to include; increased time in bed but sleeping less, reduced appetite, and apathy/ isolating. Benefited from group by increasing awareness of crisis and personal warning signs. Progress noted in client?s improved affect and report of a more positive mood since earlier this week. Will continue IOP tx as client continues to struggle with consistent emotional regulation and application of coping skills learned. Narrative Note: []
--- NOTE | 2019-07-11 11:05 | BH.SGPN.GN ---
Behaviors/Verbalizations/Mental Status: []Pt eye contact good, casually dressed, motor activity appropriate, speech normal rate and tone, mood anxious, constricted affect, thoughts linear and intact, no evidence of delusions or hallucinations. Client Response/Progress/Benefit: []Client responded well to session as evidenced by client listening attentively to others and providing input throughout session. Client identified his warning signs for crisis and gained further awareness of earliest warning signs. Client appeared to connect that awareness of these warning signs can prevent further crisis and help client utilize healthy coping skills to break the cycle. Despite assistance from therapist, client struggled with creating a crisis action plan to help client better manage warning signs for crisis. Client able to identify opposite action, getting out of bed, and calling a friend as potential strategies to help when notices a warning sign. Client created crisis survival kit by choosing various tangible items that remind him of various skills from crisis intervention plan. Client appeared to benefit from starting a crisis action plan and increasing self-awareness. Client to continue IOP to prevent decompensation, increase consistent use of healthy coping, and challenge negative thoughts. Narrative Note: []
--- NOTE | 2019-07-11 13:05 | BH.MDN_ITS ---
Multi-Disciplinary Note - Note 45-min Individual Time Started:: 12:12 Date: 07/11/19 Purpose of session/treatment goals addressed:: The purpose of this session was to address current symptoms, stressors, and negative thoughts. Another goal was to learn cognitive distortions and review impact on maintaining mental health maintenance cycles. Other topics included strategies for reducing social anxiety. Eye Contact:: Good Motor Activity:: Appropriate Appearance:: Casual Speech:: Appropriate Mood:: Anxious, Dysthymic Affect:: Congruent Thoughts:: Linear, Logical, No evidence of hallucinations/delusions noted Staff Interventions:: Therapist used active listening and open-ended questions to explore client's current stressors, symptoms, and negative thoughts. Therapist reviewed client?s homework of reviewing and identifying specific distorted thought patterns he struggles with. Therapist provided psychoeducation on cognitive distortions and the influence of thought challenging and reframing on breaking unhealthy maintenance cycles. Therapist reviewed most common types of cognitive distortions and how they impact emotions and reinforce safety behaviors impacting social anxiety. Provided pt with homework to begin tracking positive social interactions. Client Response:: Client responded well to session, open to meeting with therapist and actively engaged throughout. Client shared successfully completing his goal of going to the pet store with his friend and setting up an aquarium in his room. Shared that this was a positive experience but that he felt anxious in the store and ultimately had his friend do most of the speaking. Able to identify that avoidance continues to reinforce his anxiety and desire to avoid but shared struggling to cope with thoughts of embarrassing himself. Client receptive of reviewing cognitive distortion homework and learning about challenging distortions to break out of maintenance cycles which reinforce anxiety and depression. Client connected with overgeneralizing, absolute t hinking, and disqualifying the positives. Shared that eh uses each of these when faced with social situations and provided examples. Expressed often only looking at times he has embarrassed himself and not when he has made progress, indicating ?I?m not programed to think like that?. Receptive of discussion on importance of taking small steps to increase social setting comfort levels as well as importance of practice. Will continue to learn about distortions and thought challenging. Receptive of homework to begin tracking positive social interactions as a means of challenging use of disqualification. Risks/Concerns:: Client denies any active suicidal ideations, plan, or intent as of 07/11/19. More hopeful and positive. Laughing and future oriented throughout session. Progress Toward Goals/Plan:: Client appears to be improving in overall mood and response to treatment since taking time off from school. He is making some progress towards treatment goals AEB engaging in opposite action, reports of reduced depression, and no longer reporting suicidal ideation. Client reports reduced isolation and daily tracking of his accomplishments. Client continues to struggle with ruminations, ambivalence, inconsistent use of supports, inconsistent motivation, and distorted and negative thinking. Client responding well to learning about distortions. Will continue IOP tx to improve mood stability, promote healthy coping skills, prevent decompensation, and reduce negative thinking. Time Stopped:: 12:52
--- NOTE | 2019-07-11 14:26 | BH.TPR ---
Treatment Plan Review Date of Admission:: 06/13/19 Date of Treatment Plan Review:: 07/11/19 Admitting Diagnoses:: Bipolar 2 disorder, most recent episode depression; social anxiety disorder Current Diagnoses:: Bipolar 2 disorder, most recent episode depression; social anxiety disorder Patient's Response to Treatment:: Since beginning the [facility] tx program, Pt has displayed semi-active levels of engagement in the treatment process. Pt has maintained engaged in group and individual sessions when in attendance. He often struggles with providing verbal input to group sessions, though is actively listening, taking notes, and willing to participate in the experiential activities. During individual sessions, pt has done well to openly and actively engage in discussion, though often struggles with minimizing, reports skepticism of his ability to improve mental health sx, and inconsistent application of anxiety management and coping skills learned which continues to reinforce depression and anxiety, limit access to supports, and has recently resulted in pt withdrawing from college classes for the semester due to difficulties in managing mental health sx. In the past month, pt has struggled in attendance consistency due to illness, oversleeping, or self-isolating due to mental health sx of anxiety and depression. Pt has remained consistent with psychiatric medication compliance and throughout admission in [facility] treatment, he has been willing to regularly complete homework and engages in self-reflection during individual sessions. Status of Current Problems and Symptoms: Pt has made limited progress in treatment which may be impacted by inconsistent attendance, difficulties in identifying and challenging distorted thought patterns, limited levels of motivation, and ongoing issues in utilization of coping skills when faced with external stressors. He has made some progress in ability to identify barriers impacting mental health progress as well as advocate for his own mental health needs AEB pt asking his supports to be allowed to take time off of college courses in order to focus on improving his mental health after seeing a recent increase in depression and suicidal thoughts due to anxiety and stress associated with his future and apathy towards school. Pt continues to struggle significantly with managing anxious and self-deprecating thoughts, avoidance, and isolation behaviors. Additionally, pt notes difficulties with motivation which reinforces pt?s desire to isolate and reduces application of behavior activation skills. Problem #1 Problem Name:: Depression, SI, mood stability Status of Goals:: Partially complete. Pt is making progress on this objective, though progress remains limited. Pt notes a reduction in depression sx AEB self-report. Indicates this is related to recently discussing plans to temporarily withdraw from college courses with supports. No reporting of active suicidal ideation and reduced passive thoughts of , though continues to struggle in this area. Pt reports continued difficulties in applying self-care strategies learned which is likely impacting progress. Obj 1- Incomplete. Pt reports a slight reduction in depressive sx, though continues to struggle significantly in this area. Reports continued apathy and lack of motivation. Continues to feel limited desire to engage in activities he previously enjoyed, however is improving in use of opposite action in this area. Additionally, client continues to struggle significantly with cognitive distortions that impact his ability to implement skills learned and reinforces self-doubt/self-deprication. Obj 2- Incomplete. Team Recommendations:: Client encouraged to continue working on this treatment goal to reinforce healthy coping skills and continue to further decrease symptoms of depression. Client and therapist currently working on thought challenging and effective communication skills. Will recommended to continue IOP tx to maintain gains and continue to decrease depression related sx. Problem #2 Problem Name:: Anxiety, panic, avoidance Status of Goals:: Partially complete. Pt is making strides in reduction of anxiety sx though continues to report struggling significantly with ongoing anxiety, specifically in social settings. He self-reports difficulties in consistent in ability to manage anxious thoughts depending on the source of anxiety. Notes anxiety has improved in terms of ability to manage sx when they occur through application of calming skills. Obj1- Pt reports awareness of anxiety triggers and some warning signs, though struggles at times to check-in with self and often avoids or ignores triggers rather than addressing them. Pt indicates an increase in ability to identify healthy coping skills for in the moment anxiety such as deep breathing; however, struggles with independently applying coping skills for managing avoidance behaviors. Pt still needs some work in this area. Obj 2 - incomplete. Pt reports reduction in overall anxiety sx and reports reduction of panic related sx; however, continues to struggle with avoidance. Team Recommendations:: Client encouraged to continue working on this treatment goal to reinforce healthy coping skills and continue to further decrease symptoms of anxiety. Client recommended to continue IOP tx to maintain gains and continue to decrease anxiety related sx.
--- NOTE | 2019-07-12 11:49 | BH.MDN ---
Multi-Disciplinary Note - Note 45-min Individual Time Started:: 09:23 Date: 07/07/19 Purpose of session/treatment goals addressed:: The purpose of this session was to address current symptoms, stressors, and negative thoughts that continue to impact mental health and tx goal progress. Another purpose was to address pt ambivalence about remaining in college and begin exploring alternative options. Eye Contact:: Good Motor Activity:: Appropriate Appearance:: Disheveled, Casual Speech:: Appropriate Mood:: Anxious, Depressed Affect:: Congruent Thoughts:: Linear, Logical, No evidence of hallucinations/delusions noted Staff Interventions:: Therapist used active listening and open-ended questions to explore client's current stressors, symptoms, and negative thoughts continuing to impede tx progress and maintain depression. Therapist provided empathic responses and supportive feedback, as well as gentely challenged pt use of distorted thought patterns. Worked with pt to review the pros/cons of remaining in college vs. taking time off for his mental health. Client Response:: Client responded well to session, open to meeting with therapist. Client shared that he has been attempting to apply components of opposite action as discussed on Sunday, but that he continues to feel apathetic and depressed despite these efforts. Noted that he ?successfully left the house on my on Sunday? by going to an art store in [place] to purchase painting supplies. Indicated taking time to paint over the weekend as well. Shared that he did not feel this was much of an accomplishment or that she should be proud of himself for doing so. Pt expressed feeling that getting out of the house and painting has helped some but that he continues to feel hopeless. Went on to explain beliefs that he is wasting his time at school and that nothing he does is purposeful. 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 which reinforces lack of motivation to attend class and maintains hopelessness. Shared increased suicidal ideation over the past few days as a result of ruminating on negative thoughts about his future and shared feeling ?what?s the point??. Open to challenging these thoughts and discussing pros/cons of taking time off from attending College given the current impact on his mental health. Pt ultimately shared feeling he may want to complete his degree at some point in time, but right now feels it will be best to focus more on improving his mental health and increasing his ability to manage social anxiety sx. Expressed that increased comfort in ability to cope with anxiety may increase desire to attend classes as well. Pt shared wanting to have his mother come in this afternoon to discuss plans for increasing IOP attendance and withdrawing from [place] for the semester. Risks/Concerns:: Client denies active suicidal ideations, plan, or intent as of 07/07/19. He reports experiencing increased passive SI over the past few days which he feels is concerning and would like to increase treatment intensity as a result to maintain safety and prevent decompensation. Will attend 4 IOP days this week to prevent decompensation. Pt indicates an ability to maintain safety. Future oriented and expressed plans to spend time with his mother and go to the eye doctor this afternoon. Progress Toward Goals/Plan:: Some regression noted. Pt continues to struggle with significant social anxiety and distorted thinking patterns associated with attending college and his future. This has continued to result in pt not attending college classes which further reinforces self-deprecation and anxieties about speaking in public settings. Pt reports hopelessness, apathy, and increased passive suicidal ideation without plan or intent as a result. Indicates feeling slightly better when not in class and able to paint or see friends. Shared plans to withdraw from [place] for the semester in order to focus more on mental health treatment and decide if college is the correct fit for him. Pt and this therapist will communicate treatment plan changes with his mother following group on this date per pt request. continue IOP tx to improve mood stability, promote healthy coping skills, prevent decompensation, and reduce negative thinking. Time Stopped:: 10:17
--- NOTE | 2019-07-15 09:06 | BH.SGPN.GN ---
Behaviors/Verbalizations/Mental Status: []Eye contact is good. Motor activity is appropriate. Appearance is casual. Speech is Appropriate. Mood is euthymic and anxious. Affect is congruent. Thoughts are linear and logical. No evidence of psychosis. Reviewed daily check in sheet and no reports of suicidal ideations or intent. Client Response/Progress/Benefit: []Pt was an active participant in group discussion. Pt shared that he is feeling a little ill today as he had been struggling with some stomach issues on previous date. Described current mood as ?calm? and noted this is due to reduced stress related to school and his finances. Pt identified current mental health ?wins? as challenging himself to complete goal of speaking to someone new over the weekend. Expressed that it had been both an anxiety provoking and positive experience as he was able to successfully complete the goal. Noted additional win as cleaning his room as a form of self-care despite not wanting to do anything while feeling sick. Stressor noted as ongoing stomach issues. Benefited from group support, encouragement, and feedback. Will continue in IOP to prevent decompensation, stabilize mood, and improve daily functioning. Narrative Note: []
--- NOTE | 2019-07-15 10:15 | BH.SGPN.GN ---
Behaviors/Verbalizations/Mental Status: []Pt eye contact good, casually dressed, motor activity appropriate, speech normal rate and tone, mood dysthymic, constricted affect, thoughts linear and intact, no evidence of delusions or hallucinations. Client Response/Progress/Benefit: []Client was an active participant in group activity and provided input to discussion. Client connected with the topic of obstacles and solutions and worked with group to identify common internal and external barriers that keep people stuck. Group identified; low motivation, not having skill set, learned behavior, hopelessness, and negative thinking as potential internal barriers that could prevent progress towards a better quality of life. Client shared current reality as feeling like he is running away from existential dread, trying to use healthy coping skills but struggling with seeing a purpose to life. Client's realistic, desired reality to believe there is a purpose to life which will increase his motivation and desire to get better. Benefited from group as client was able to identify current and desired mental health state and increase awareness of how barriers can impact progress. Will continue IOP tx to increase healthy coping skills, maintain set boundaries, and prevent decompensation. Narrative Note: []
--- NOTE | 2019-07-15 11:20 | BH.SGPN.GN ---
Do not bill; pt was not present Behaviors/Verbalizations/Mental Status: [] Client Response/Progress/Benefit: [] Narrative Note: []
--- NOTE | 2019-07-15 14:41 | BH.MDN_ITS ---
Multi-Disciplinary Note - Note 30-min Individual Time Started:: 11:41 Date: 07/15/19 Purpose of session/treatment goals addressed:: Purpose of session was to assess pt's current symptoms and stressors. Other topics included: reviewed exposure therapy homework from last session and identify strategies for reframing negative thoughts following social interactions. Eye Contact:: Good Motor Activity:: Appropriate Appearance:: Casual Speech:: Appropriate Mood:: Anxious, Dysthymic Affect:: Congruent Thoughts:: Linear, Logical, No evidence of hallucinations/delusions noted Staff Interventions:: Therapist used open ended questions to elicit pt's current symptoms and stressors. Therapist reviewed homework from last session about small exposure goals for social situation and aid pt in identifying positives in each interaction. Worked collaboratively with pt to identify mindfulness strategies for reducing social anxiety and increasing ability to remain present in conversations. Provided support by using active listening and validating emotions. Client Response:: Pt responded well to session, reported being ill yesterday but is feeling much better and is in a more positive mood as a result. Pt discussed overall his depression has reduced in the past week since withdrawing from school and has not experienced any suicidal thoughts for the past week as a result. Shared that he was able to get out of his house and spend time with friends over the weekend as well as successfully completed homework provided in previous session. Pt was challenged to work on small social anxiety exposure goal of having a 1-2 minute conversation with someone he doesn?t know. Indicated that he actually completed this goal on 3 occasions but feels only one experience was successful as he felt embarrassed during the other two. Pt described that although he did not avoid and was able to successfully have each of the interactions he struggled with fumbling through his words and therefore feels these were failures. Expressed not wanting to feel uncomfortable in social settings at all which results in increased self-deprecation following new social interactions and increased desire to avoid future social interactions. Willing to work with therapist on identifying positives within each interaction including willingness to follow through with each interaction despite anxiety about doing so. Pt discussed a major contributing factor to his anxiety as struggling to focus during conversations making it more difficult to remain engaged. Pt open to discussing strategies for reducing anticipatory anxiety prior to being in social situations through use of a mantra reminding himself ?I?m alright, I can get through this?. Shared interest in beginning to learn mindfulness skills to increase ability to remain present throughout conversa tions and prevent becoming caught up in his own thoughts. Expressed willingness to begin journaling daily as well as a means for implementing scheduled self- reflection time to reduce desire to do so as during social interactions as well. Risks/Concerns:: Pt denies current suicidal ideation, plan or intention to date, 07/15/19. Progress Toward Goals/Plan:: Progress in management of symptoms over the past week as evidenced by pt reporting decreased depression and increased willingness to socialize with supports. Willing to complete assigned homework of small social exposure goal. Pt stated feeling anxious in doing so but was glad he followed through with this goal. Continues to struggle with feeling purposeless which continues to maintain depressive sx. Additionally, continues to report ongoing distorted thoughts maintaining anxiety. Pt to continue IOP level of care to increase consistent appliacation of healthy skills, challenge negative thoughts and prevent decompensation. Time Stopped:: 12:14
--- NOTE | 2019-07-16 09:05 | BH.SGPN.GN ---
Behaviors/Verbalizations/Mental Status: [] Eye contact is good. Motor activity is appropriate. Appearance is casual. Speech is Appropriate. Mood is depressed. Affect is flat. Thoughts are linear and logical. No evidence of psychosis. Reviewed daily check in sheet and pt reports 3/5 for suicidal ideations and 2/5 for intent. Therapist notified. Client Response/Progress/Benefit: [] Pt participated at times during the group discussion. Emotion for today is anxious. Shared some mental health wins which centered around his fish. Taking a significant interest in caring for his fish which he reports is a distraction and also helps with staying in the present. Noted that he cleaned his room which he has not done in awhile. Accomplishing tasks. Feels more in control and organized. Progress noted per pt report. Will continue in IOP to maintain safety, increase healthy coping, prevent decompensation, and improve functioning. Narrative Note: []
--- NOTE | 2019-07-16 16:06 | BH.MDN_ITS ---
Multi-Disciplinary Note - Note 45-min Individual Time Started:: 12:12 Date: 07/16/19 Purpose of session/treatment goals addressed:: The purpose of this session was to address current symptoms, stressors, and negative thoughts maintaining depression. Another purpose was to introduce and begin challenging common myths about emotions. Other topics included reviewing maintenance cycles and identifying safety plan for the evening. Eye Contact:: Good Motor Activity:: Appropriate Appearance:: Casual Speech:: Appropriate Mood:: Anxious, Depressed Affect:: Congruent Thoughts:: Linear, Logical, No evidence of hallucinations/delusions noted Staff Interventions:: Therapist used active listening and open-ended questions to explore client's current stressors, symptoms, and negative thoughts. Therapist reviewed with client maintenance cycles and discussed how current fixed thoughts are maintaining depression and anxiety. Therapist worked with pt to begin challenging and reframing use of fixed thinking patterns. Therapist introduced and reviewed common myths about emotions, worked with pt on breaking myths down. Provided pt with homework to challenge remaining myths to review in next session. Discussed safety plan for evening Client Response:: Pt reported increased scores for suicidal ideation daily sx tracker this morning. He was receptive of meeting with therapist to assess for risk, discuss factors contributing to increased SI, and establish a plan for the evening. Pt shared struggling with chest tightness and other physical sx of anxiety last night and this morning. Expressed that this led to feeling discouraged and struggling with thoughts of ?I?m always going to feel like this. Life is never going to get better?. Able to identify how this thought contributed to depression maintenance cycle as he identified increased hopelessness and isolation as a result. Pt did well to recognize this as a fixed thought and point out the connection between this thought and increased suicidal ideation on this date. Expressed ?I don?t talk or treat myself the way I would others; however often reverted to sarcasm and self-deprecating humor when attempting to work with therapist on identifying more compassionate forms of self-talk and strategies for improving self-care. Expressed feeling overwhelmed by ?how much is wrong with me and how much I have to work on?. Pt continues to struggle with feeling uncomfortable confronting distortions and working to reframe unhealthy thinking patterns. Continues to express reluctance in believing reframing statements. Reports not feeling actively suicidal but is reluctant to believe he can improve his mental health. Future oriented and able to identify areas within his control to begin making small improvements in his mood, though expresses limited motivation to do so. Able to safety plan for the evening and reports plans to spend time cleaning his fish tank and will call his friend [employer] to hangout this afternoon. Risks/Concerns:: Client denies any active suicidal ideations, plan, or intent as of 07/16/19. Reports experiencing passive thoughts of on previous date due to increased anxiety and negative thoughts. Denies any plan or intent at that time. Pt is future oriented and expresses an ability to maintain safety at this time. Identifies his mother and dogs as protective factors. Reports plans to attend IOP group tomorrow. Progress Toward Goals/Plan:: Regression noted. Client appears to be struggling with significant distorted thought patterns and negative self-talk which reinforce sx of anxiety and depression. Able to identify maintenance cycle and factors in his daily routine and thought processes contributing; however, continues to report apathy and limited motivation to begin challenging and fernando nging thoughts and behaviors contributing. Is making some progress in addressing anxious thoughts, though becomes increasingly distressed if experiencing a setback. Reports anxiety on prior date led to thoughts of not wanting to be alive and isolating self. Client continues to struggle with ruminations, ambivalence, inconsistent use of supports, inconsistent motivation, and distorted and negative thinking. Will continue IOP tx to improve mood stability, promote healthy coping skills, prevent decompensation, and reduce negative thinking. Time Stopped:: 12:52
--- NOTE | 2019-07-17 09:10 | BH.SGPN.GN ---
Behaviors/Verbalizations/Mental Status: [] Eye contact is good. Motor activity is appropriate. Appearance is causal. Speech is Appropriate. Mood is depressed. Affect is flat. Thoughts are linear and logical. No evidence of psychosis. Reviewed daily check in sheet and pt reports 1/5 for suicidal thoughts and 0/5 for intent. Improvement from yesterday. Client Response/Progress/Benefit: [] Pt participated at times during the group discussion. Emotion for today is peaceful. Daily symptom tracker notes 2/5 for anxiety and 3/5 for hopelessness. Shared that he slept well last night. Feels more stable emotionally. Noted some bad anxiety yesterday however feels that he managed it effectively and did not let it overwhelm him. Progress noted per pt report. Benefited from group support, feedback, and encouragement. Will continue in IOP to maintain safety, prevent decompensation, and improve daily functioning. Narrative Note: []
--- NOTE | 2019-07-17 10:13 | BH.SGPN.GN ---
Behaviors/Verbalizations/Mental Status: []Client alert and oriented, casually dressed and groomed. Eye contact good. Motor activity appropriate. Speech within normal limits. Affect constricted, mood anxious and dysthymic. Thoughts linear, logical, no signs of hallucinations or delusions. Client Response/Progress/Benefit: []Client receptive of session, attentive in discussion and activity. Client discussed the quote and provided input that ?stuffing emotions doesn?t remove what happened and just makes it easier for something small to set you off?. Client helped group identify barriers that impact one?s ability to communicate when emotions are high. These barriers included; increased stress, fear of confrontation or conflict, making assumptions, and distorted thoughts. Expressed that unmanaged emotions can make one?s tone appear more severe than intended. Client participated in the activity and did well to manage emotions throughout. Client appeared to benefit from increasing awareness of how emotions can impact communication and practicing in the moment coping skills. Progress noted as client has been demonstrating improved engagement and reports improved mood; however, continues to struggle with application of thought challenge and emotion regulation outside group environment. Will continue IOP tx to further increase emotion regulation, improve coping and communication, and improve daily functioning. Narrative Note: []
--- NOTE | 2019-07-17 11:14 | BH.SGPN.GN ---
Behaviors/Verbalizations/Mental Status: []Eye contact is fair to good. Motor activity is appropriate. Appearance is casual. Speech is Appropriate. Mood is depressed, anxious. Affect is constricted. Thoughts are linear and logical. No evidence of psychosis. Client Response/Progress/Benefit: []Pt did well to manage anxiety and participate in group activity, as well as provided input during discussion. Pt worked with group members to identify connections between activity and strategies for overcoming barriers to making mental health changes. Pt noted that lack of direction and low motivation, as well as distorted thoughts can be a barrier to ?turning over a new leaf? in her personal life. Pt did well to identify a specific change he would like to make for his mental health, barriers to making that change, and a SMART goal to reach that change. Shared he would like to work on improving ability to consistently engage in regular journaling. Discussed that this change would help to increase ability to process his thoughts/emotions and make progress with mental health. Pt benefited from working with group to identify strategies to overcome barriers to change and create a plan for implementing one small change promoting personal growth. Pt recommended to continue IOP tx to increase effective communication with supports, improve ability to challenge distorted thoughts maintaining depression, and prevent decompensation. Narrative Note: []
--- NOTE | 2019-07-17 11:15 | BH.SGPN.GN ---
Behaviors/Verbalizations/Mental Status: []Client alert and oriented, casually dressed and groomed. Eye contact good. Motor activity appropriate. Speech within normal limits. Affect congruent to topic being discussed, mood anxious, slightly dysthymic. Thoughts linear, logical, no signs of hallucinations or delusions. Client Response/Progress/Benefit: []Client engaged in session AEB client listening attentively to peer and providing input at times during session. Attentive during psychoeducation on 4 zones of regulation. Client able to identify how he feels in each zone as well as how he acts in each zone. Client able to identify what behaviors he exhibits when in the different emotional zones. Group identified coping skills can use to support self in each zone which included: doing something enjoy, being social, journaling, opposite action, self-care, and self-talk. Client stated he most often is in the low state of alertness. Client reported he will work on the coping skill of going for a walk. Benefited from increased education on zones of regulation or stages of alertness for emotions and healthy coping skills to use for each zone. Will continue IOP tx to increase focus on what is in control, prevent decompensation, and increase utilization of healthy skills.
--- NOTE | 2019-07-18 10:16 | BH.SGPN.GN ---
Behaviors/Verbalizations/Mental Status: []Client alert and oriented, casually dressed and groomed. Eye contact fair to good. Motor activity appropriate. Speech within normal limits. Affect congruent, mood dysthymic. Thoughts linear, logical, no signs of hallucinations or delusions. Client Response/Progress/Benefit: []Client responded well to session, attentive and engaged throughout. Participated in group discussion to define conflict and identify differences between internal and external conflict. Client shared that anxiety and not wanting confrontation has led to avoiding conflicts in the past. Group reported the benefits of addressing conflict included increased self-confidence, increased trust in relationships, having needs be met, and preventing further conflict from arising. Group identified and discussed consequences of not addressing conflict in healthy ways which included: decreased self-esteem, damaged relationships, increased mental health symptoms, and additional stressors developing as a result. Benefited as client was able to identify current conflict style and how it impacts his mental health. Noted he often is avoiding or accommodating and that he tries to ?blend in to avoid?. Identified that this has worsened anxiety as a result Progress noted as shown by client?s report of improved insight, though he continues to struggle with active application of skills and utilizing humor as a defense mechanism. Will continue IOP tx to promote insight and application of healthy skills, reduce mental health sx severity, and further improve daily functioning. Narrative Note: []
--- NOTE | 2019-07-18 11:20 | BH.SGPN.GN ---
Behaviors/Verbalizations/Mental Status: []Client alert and oriented, casually dressed and groomed. Eye contact good. Motor activity appropriate. Speech within normal limits. Affect constricted, mood anxious and dysthymic. Thoughts linear, logical, no signs of hallucinations or delusions. Client Response/Progress/Benefit: []Client passive participant AEB client providing limited input during group discussion, however appeared to listen attentively and taking notes throughout. Listened to ongoing discussion of the different conflict resolution styles, drawbacks, and appropriate times of use. Client stated he most often avoids or accommodates when faced with conflict. Client stated if he can't avoid a conflict then he will accommodate. Client reported he when he has to go out in public he tries to blend in so others don't notice him. Client reported these types of conflict resolution style negatively impacts his mental health as it causes client to have increased anxiety. Client reported he has a desire to be more competing in his conflict resolution style so he advocates for his own needs instead of giving into others wants. Client appeared to benefit from increasing awareness of personal conflict resolution style and from learning ways to increase healthy conflict resolution. Will continue tx to increase consistent use of healthy coping, decrease anxiety, and prevent decompensation. Narrative Note: []
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
--- NOTE | 2019-07-22 09:06 | BH.SGPN.GN ---
Behaviors/Verbalizations/Mental Status: []Eye contact is good. Motor activity is appropriate. Appearance is casual. Speech is Appropriate. Mood is euthymic and anxious. Affect is congruent. Thoughts are linear and logical. No evidence of psychosis. Reviewed daily check in sheet and no reports of suicidal ideations or intent. Client Response/Progress/Benefit: []Pt was an active participant in group discussion. Described current mood as ?calm? and noted this is due to starting to see improvements in his own emotions. Pt identified current mental health ?wins? as challenging himself to go grocery shopping with a friend. Shared that this would typically be an anxiety provoking situation but having supports and using positive self-talk aided in reducing overall. Noted additional win as continuing to use thought challenging and opposite action skills to get to group today despite a desire to stay in bed instead. Stressor noted as ongoing concern regarding current nationwide pandemic, COVID-19. Appeared to benefit from the support of the group and focusing on that which is within his control. Benefited from group support, encouragement, and feedback. Will continue in IOP to prevent decompensation, stabilize mood, and improve daily functioning. Narrative Note: []
--- NOTE | 2019-07-22 10:10 | BH.SGPN.GN ---
Behaviors/Verbalizations/Mental Status: []Client alert and oriented, disheveled appearance. Eye contact good. Motor activity appropriate. Speech within normal limits. Affect congruent, mood dysthymic. Thoughts linear, logical, no signs of hallucinations or delusions. Client Response/Progress/Benefit: []Client responded well to session, occasionally participating in group discussion and activity. Attentive during psychoeducation and commenting on the quote. Client stated we feel apprehensive about changes, so we rationalize not making them. Group identified the benefits of change which included: personal growth, better relationships, improved mental health, increased confidence, and better coping skills. Worked with the group to identify barriers to change, which included: growing up with unhealthy coping skills, fear of embarrassment, fear of the unknown, fear of hurting others, comfort, and what if thinking. Client participated along with group in activity where they identified and discussed the emotions related to change. Client was attentive during psychoeducation on the change process. Benefited from increased awareness and understanding of emotions, benefits, and barriers related to change. Will continue IOP tx as he continues to report a depressed mood and isolative behaviors. Narrative Note: []
--- NOTE | 2019-07-22 11:17 | BH.SGPN.GN ---
Behaviors/Verbalizations/Mental Status: []Client alert and oriented, casually dressed and fair grooming. Eye contact fair. Motor activity appropriate. Speech within normal limits. Affect constricted, mood anxious and dysthymic.Thoughts linear, logical, no signs of hallucinations or delusions. Client Response/Progress/Benefit: []Client was an active participant AEB client providing input during discussion and listening to peers attentively. Client engaged during discussion on weighing the pros and cons associated with change and benefited from learning to do so through use of decisional balance sheet. Identified change he wants to make is being more social. Client able to identify the pros of being more social which included decreased anxiety around people, decreased social anxiety, and being able to manage anxiety better. Identified con of being more social is having a higher baseline of anxiety when around people. Client stated he is still unsure if he is completely ready to make the change of being more social. Appeared to benefit from gaining awareness of the pros and cons associated with changing her coping skills. Recommended continued IOP tx to challenge distortions, increase consistent application of skills and prevent decompensation. Narrative Note: []
--- NOTE | 2019-07-22 15:59 | BH.COMM ---
Communication Note - Communication with Client Communication Note: Pt scheduled to meet with therapist on this date. Indicated not feeling well near end of session and request rescheduling session. Will meet with therapist on , 07/24/19 for next session. Expressed running low on psychiatric medication which will be communicated to program nurse to follow-up.
--- NOTE | 2019-07-24 10:09 | BH.SGPN.GN ---
Behaviors/Verbalizations/Mental Status: []Client alert and oriented, casually dressed and groomed. Eye contact good. Motor activity appropriate. Speech within normal limits. Affect congruent, mood anxious. Thoughts linear, logical, no signs of hallucinations or delusions. Client Response/Progress/Benefit: []Client responded well to session, attentive throughout. Client participated in discussion of things that can keep people feeling trapped or stuck in life including; isolation, lack of trust, pushing others away, focusing on negatives/defeatist attitude, unhealthy relationships, and negative self-talk. Group discussed the connection between thoughts, emotions, and behaviors as well as how negative thinking can keep a person stuck. Client attentive during psychoeducation on maintenance cycles and reported he has been struggling to get out of depressive and anxiety maintenance cycles for a while. Client able to identify negative thoughts that have reinforced depression and anxiety and kept client feeling trapped. Client shared his negative thought which was ?it doesn?t matter? and ?I can?t get over my anxiety and so living is just going to be horrible.? Appeared to benefit from gaining awareness of how negative thoughts reinforce mental health symptoms and keep people stuck. Progress noted in client?s report of overall improved mood and decreased feelings of hopelessness, improving on thought challenging skills. Will continue IOP to promote mood stability and reinforce healthy coping skills. Narrative Note: []
--- NOTE | 2019-07-24 11:13 | BH.SGPN.GN ---
Behaviors/Verbalizations/Mental Status: []Client alert and oriented, casually dressed and groomed. Eye contact good. Motor activity appropriate. Speech within normal limits. Affect constricted, mood dysthymic. Thoughts linear, logical, no signs of hallucinations or delusions. Client Response/Progress/Benefit: []Client responded well to session, contributing to discussion when prompted. Client appeared to connect with maintenance cycles and recognized how negative thinking can keep a person stuck. Client identified a negative thought that has kept him stuck. Client shared he often struggles with assuming people's thoughts. Client could not identify a specific negative thoughts, but he stated generally he struggles with ?they think? thoughts. Client able to connect how this thought maintains depressive cycle. Client reported when he assumes people's thoughts his anxiety increases which leads to isolation and avoidance. Client able to reframe the assuming thoughts by saying never assume unless you have real evidence. Wait until they act or tell you.? Client shared this thought would improve his mental health because it would reduce anxiety and encourage client to participate in social events. Client appeared to benefit from practicing challenging negative thinking. Client to continue IOP to prevent decompensation and reduce avoidance behaviors. Narrative Note: []
--- NOTE | 2019-07-24 15:54 | BH.MDN_ITS ---
Multi-Disciplinary Note - Note 45-min Individual Time Started:: 09:25 Date: 07/24/19 Purpose of session/treatment goals addressed:: Purpose of session was to assess pt's current symptoms and stressors. Other topics included: Review of homework on common trauma triggers/reactions and begin completion of ?Trigger Action Plan? aimed at identifying specific coping skills for each identified trauma related trigger impacting pt anxiety levels. Eye Contact:: Good Motor Activity:: Appropriate Appearance:: Casual Speech:: Appropriate Mood:: Anxious, Dysthymic Thoughts:: Linear, Logical, No evidence of hallucinations/delusions noted Staff Interventions:: Therapist used open ended questions to elicit pt's current symptoms and stressors. Provided supportive feedback, active listening, and emotion validation as pt shared homework identifying his trauma related triggers and reactions. Therapist provided psychoeducation and aided pt in processing various identified triggers and the impact they have had of mental health and anxiety management. Began creation of ?Trigger Action Plan? aimed at identifying specific coping skills for each identified trauma related trigger impacting pt anxiety levels and gave plan for pt to complete for homework. Client Response:: Pt responded well to session, continues to do well to remain engaged throughout discussion. Pt shared that he was able to reach out to some of his friends over the past week and hangout with them. Shared that this was a positive experience and that he had begun playing league of [employer] online as well but that because his anxiety continues to significantly impact him, he must mute all other players in the game. Pt went on to work with therapist on reviewing and processing homework provided in last session. Pt expressed connecting with a variety of listed trauma related reactions, noting specifically connecting with trying to go out of his way not to make mistakes and often avoids if he believes he will. Pt additionally shared isolating from others and feeling disconnected, feeling numb or hopeless, difficulties trusting others, feeling inadequate, and seeing the world as a bad place. Able to identify how this has impacted him as an adult and created additional barriers to managing anxiety related symptoms. Pt and therapist spent remainder of session beginning work on creating a ?Trigger Action Plan? aimed at identifying specific coping skills for each identified trauma related trigger impacting pt anxiety levels. Pt willing to complete for homework. Risks/Concerns:: Pt denies current suicidal ideation, plan or intention to date, 07/24/19. Progress Toward Goals/Plan:: Progress in pt self-report of improved mood and reduced depressive sx. Pt additionally reports increased socialization, however continues to struggle with significant anxiety in social settings. Shared often experiencing self-deprecating thoughts as a result and noted that he has not attempted to apply positive self-talk and self-coaching exercises in this moments. Continues to deny suicidal ideation. Pt has been willing to begin discussing impact of trauma on overall anxiety levels. Begun a ?Trigger Action Plan? aimed at identifying specific coping skills for each identified trauma related trigger impacting pt anxiety levels. Pt to continue IOP level of care to increase consistent application of healthy skills, challenge negative thoughts, improve anxiety management, and prevent decompensation. Time Stopped:: 10:01
--- NOTE | 2019-07-29 09:08 | BH.SGPN.GN ---
Behaviors/Verbalizations/Mental Status: []Client alert and oriented, casual dress, hygiene tended to. Eye contact good. Motor activity appropriate. Speech within normal limits. Affect constricted, mood anxious. Thoughts linear, logical, no signs of hallucinations or delusions. Reviewed client?s symptom tracker, no signs of suicidal ideation, plan, or intent as of today. Client Response/Progress/Benefit: []Pt responded well to session AEB pt openly sharing thoughts and feelings and listened attentively to peers. Pt reported a mental health positive is being able to maintain a positive mindset despite having to self-isolate due to coronavirus. Pt stated he believes he has been able to maintain positivity because everyone has to isolate versus him choosing to isolate. Pt identified another mental health positive is playing a new video game that he finds to be calming and helpful to his mental health. Pt stated he doesn't have any current stressors. Progress noted with pt reported increased positive attitude. Pt to continue IOP to maintain gains, decrease social anxiety and prevent decompensation. Narrative Note: []
--- NOTE | 2019-07-29 10:15 | BH.SGPN.GN ---
Behaviors/Verbalizations/Mental Status: []Client alert and oriented, casually dressed and groomed. Eye contact good. Motor activity appropriate. Speech within normal limits. Affect congruent, mood anxious, euthymic. Thoughts linear, logical, no signs of hallucinations or delusions. Client Response/Progress/Benefit: []Pt active participant as shown by contribution to discussion and insight provided. Pt shared connecting to group topic of self-care and discussed that self-care means finding balance in relationships. Pt helped the group discuss benefits of self-care. Benefits included; improved happiness and mood, maintaining stability, less stress, increased organization and productivity, and improved self-confidence. Pt participated in the discussion of the common myths about self-care including self-care is selfish, requires money, too much effort and time, and is self-indulgent. Client participated in the discussion on debunking of these myths. Client seemed to benefit from increased awareness of the importance of self-care and challenging common myths that prevent practicing self-care. Discussed at times struggling to remind himself to prioritize self-care and do the difficult things like reach out to others or come to group when tempted to avoid. Noted that this has led to increased isolation, anxiety, and depression in the past. Client showing progress as shown by client?s report of increased application of thought challenging skills and improved mood. Will continue IOP tx to promote gains and to further decrease negative thinking and ruminative thoughts, improve mental health sx management, as well as prevent decompensation. Narrative Note: []
--- NOTE | 2019-07-29 11:15 | BH.SGPN.GN ---
Behaviors/Verbalizations/Mental Status: []Client alert and oriented, casually dressed and groomed. Eye contact good. Motor activity appropriate. Speech within normal limits. Affect constricted, mood euthymic and anxious. Thoughts linear, logical, no signs of hallucinations or delusions. Client Response/Progress/Benefit: []Client receptive of session, engaged and contributing to discussion. Participated in further debunking myths about self-care and reinforcing the benefits of practicing consistent self-care. Willing to complete worksheet activity and helped the group identify various types of self-care activities. Client completed self-assessment activity on the different areas of self-care and was able to identify current practices he uses and identify areas he can improve upon. Client reported he can improve his spiritual self-care area. Expressed that he would like to try meditation again. Client shared he tried in the past and thought he was doing it incorrectly. Client reported the meditation video in process group encouraged client to try again. Client appeared to benefit from increasing awareness of how he can improve self-care balance. Progress noted as shown by client?s increased consistence in attendance and report of less negative thinking. Will continue IOP tx to further decrease social anxiety and improve daily functioning. Narrative Note: []
--- NOTE | 2019-07-29 15:55 | BH.MDN_ITS ---
Multi-Disciplinary Note - Note 45-min Individual Time Started:: 12:18 Date: 07/29/19 Purpose of session/treatment goals addressed:: The purpose of this session was to address current symptoms, stressors, and anxious thoughts impacting mental health sx management. Another goal was to guide pt through first exposure therapy exercise aimed at reducing phone related anxieties. Other topics included: review Trigger Action Plan provided for homework. Eye Contact:: Good Motor Activity:: Appropriate Appearance:: Casual Speech:: Appropriate Mood:: Anxious Affect:: Congruent Thoughts:: Linear, Logical, No evidence of hallucinations/delusions noted Staff Interventions:: Therapist used active listening and asked open-ended questions to explore client's current stressors, symptoms, and anxious thoughts. Therapist reviewed client?s homework of creating a trauma trigger action plan. Therapist discussed with client potential of transitioning to teletherapy given current COVID-19 pandemic and aided in addressing client concerns related to this. Reviewed prior psychoeducation on exposure therapy and discussed exercises to begin addressing his phone related anxiety and prepare for teletherapy. Guided client through initial phone exposure therapy exercise. Client Response:: Client responded well to session, open to meeting with therapist and actively engaged throughout. Client shared feeling more positive over the past week since the government has limited social activity due to COVID-19 pandemic. Client expressed that this has aided in reducing guilt he has previously had about isolating as now he is being to do so and it is considered to be socially acceptable. Client able to identify the importance of continuing to reach out to others and socialize in way that promote social distancing such as the phone or online. Client expressed understanding the importance of doing so to reduce urges to continue isolating once government restrictions have been lifted; however, expressed feeling too anxious to do so as he has always felt nervous in making and receiving phone calls. Reviewed the impact that phone anxiety may have on continued treatment as his outpatient provider is currently functioning on a teletherapy-only basis and there is potential that this program may move towards teletherapy options depending on physical health risk levels. Client expressed a desire to continue in therapy but feels uncomfortable with the phone and is unsure of his ability to manage related anxieties. Open to reviewing concept of exposure therapy in reducing anxiety and shared willingness to begin small exposure exercises to reduce phone related fears and urges to avoid. Open to completing a phone anxiety specific fear ladder and worked with therapist on completing first two exercises which included calling a number conn ected to an automated message and calling this therapist from another phone while sitting in the office. Reviewed calming skills and self-talk messages to utilize in order to support himself in doing so. Client expressed increased anxiety following the exercises and was clutching his chest. Walked through deep breathing and calming skills to return to baseline. Client indicated this was ?scary and overwhelming? but that he is willing to continue to work on phone exposure to further improve comfort with making/receiving phone calls. Risks/Concerns:: Client denies any active suicidal ideations, plan, or intent as of 07/29/19. More engaged, identified plans for evening, future oriented throughout session. Progress Toward Goals/Plan:: Client appears to continue to be making improvements in overall ability to cope with mental health sx of anxiety and depression. Pt has been willing to work with this therapist on identifying coping skills he may use in times of increased anxiety or when experiencing trauma related triggers. Pt is continuing to reach out to his main support, friend [employer], which has aided pt in improving his overall socialization. Although, pt reports willingness to reach out to this support, he continues to struggle with significant social anxiety contributing to urges to isolate and reinforces distorted thought patters. Client has made progress in willingness to begin confronting anxieties and is successfully working with this therapist on completing exposure therapy exercises to reduce social anxieties. Will continue IOP tx to improve mood stability, promote healthy coping skills, prevent decompensation, and reduce negative thinking. Time Stopped:: 13:01
--- NOTE | 2019-07-30 11:08 | BH.COMM ---
Communication Note - Communication with Client Communication Note: Pt scheduled for IOP group, psychiatry, and individual sessions on this date however did not show or cancel. Pt experiences high levels of phone anxiety and therefore this therapist reached out to follow-up with pt via email due to pt not answering phone or having available voicemail space. Therapist will to continue to follow-up.
--- NOTE | 2019-07-30 14:38 | BH.COMM_ITS ---
Communication Note - Communication with Client Communication Note: Pt mother informed this therapist that pt had a sore throat and stomach ache this morning which is why he was not is attendance. Therapist informed pt mother of new COVID-19 safety protocol requiring pt be 24 hours sore throat free before returning to [facility] tx. Pt was also instructed to follow-up with his primary care provider. Encouraged mother to have pt contact this therapist via email to attempt to set up a phone therapy session.
--- NOTE | 2019-08-01 10:18 | BH.SGPN.GN ---
Behaviors/Verbalizations/Mental Status: [] Eye contact is good. Motor activity is appropriate. Appearance is casual - wearing a mask due to recent sore throat. Speech is Appropriate. Mood is anxious. Affect is congruent. Thoughts are linear and logical. No evidence of psychosis. Client Response/Progress/Benefit: []Pt was an active participant in group discussion and activity. Attentive during psychoeducation. Provided feedback on the quote of the day, indicating the importance of recognizing small goal progress in order to achieve larger goals. . Worked with peers on defining what goals are and indicated that ?goals are objectives?. Additionally, pt worked with the group on identifying benefits of goal-setting as: increased motivation, feeling that longer term goals are more accomplishable, feel more accomplished, and increase positive thinking. Pt and group worked together to identify barriers impacting ability to reach goals which included: external influences and other?s opinions, disqualifying small steps towards progress, setbacks, and unrealistic expectation. Able to provide feedback during psycho-education on SMART goals. Pt appeared to benefit from learning the mental health benefits of setting goals that are specific, measurable, attainable, relevant, and time-specific. Will continue in IOP to decrease anxiety, improve functioning, and continue to promote healthy change behaviors. Narrative Note: []
--- NOTE | 2019-08-01 11:18 | BH.SGPN.GN ---
Behaviors/Verbalizations/Mental Status: []Eye contact is fair. Motor activity is appropriate. Appearance is neat. Speech is Appropriate. Mood is anxious. Affect is flat. Thoughts are linear and logical. No evidence of psychosis Client Response/Progress/Benefit: []Client was engaged and contributing to discussion when prompted. Provided appropriate feedback to peers and shared his goal with the group. Client chose the goal; practice meditation for 10 minutes a day each day for a week. When asked why this goal was important and beneficial to client's mental health he stated; it will help him with mindfulness and focus. Identified the following barriers to completing this goal which included; difficulty changing habits, forgetfulness, negative assumptions, procrastination, and unknown barriers. Identified solutions to barriers which included; practicing opposite action, visual cues, reminding himself it's only 10 minutes, and writing out reminders on note cards. Benefited from this group by practicing how to develop a short-term SMART goals related to mental health. Will continue IOP tx to further decrease depression and anxiety while improving daily functioning. Narrative Note: []
--- NOTE | 2019-08-05 09:06 | BH.SGPN.GN ---
Behaviors/Verbalizations/Mental Status: []Client alert and oriented, casual dress, hygiene tended to. Eye contact good. Motor activity appropriate. Speech within normal limits. Affect congruent, mood anxious, dysthymic. Thoughts linear, logical, no signs of hallucinations or delusions. Reviewed client?s symptom tracker, client indicated a 1/5, with 5 being severe, for suicidal ideation and a 0/5 for suicidal intent. A 1/5 for suicidal thoughts is consistent with pt's baseline. Pt does not seem to be imminent risk to harm self or others, future oriented and reports willingness to check-in following group. Client Response/Progress/Benefit: []Client responded well to session AEB pt listening attentively to others and openly sharing thoughts with group. Pt more engaged than in past sessions. He identified a mental health positive as making an effort to complete his goal [place]. Shared that this had been a positive and relaxing experience and that he is planning to continue with this goal. Pt stated additional mental health positive as following through with another goal which was to practice meditation each day for at least 10 minutes. Noted that he feels consistent practice is improving his ability to feel more successful in his practice. Pt identified his current stressor as being trauma triggered by a movie he had watched on the previous night. Expressed feeling anxious this morning as a result. Pt seemed to benefit from support from peers and challenging hisself to reframe this experience. Pt to continue IOP to increase healthy coping, challenge negative thinking and prevent decompensation. Narrative Note: []
--- NOTE | 2019-08-05 10:13 | BH.SGPN.GN ---
Behaviors/Verbalizations/Mental Status: []Client alert and oriented, casually dressed and groomed. Eye contact fair. Motor activity appropriate. Speech within normal limits. Affect congruent, mood anxious. Thoughts linear, logical, no signs of hallucinations or delusions. Client Response/Progress/Benefit: []Client responded well to session, attentive and engaged throughout session, taking notes. Client appeared to connect with the topic of fear of failure. Client participated in the discussion of famous failures and agreed with peers that people often see successes in others, and failures within themselves. Group reported it is possible to challenge one's mindset when faced with failure and learn to overcome it despite set backs. Group identified the impacts of fear of failure on mental health which included; avoidance of new opportunities, poor self-esteem, self-sabotage, increased anxiety and depression, and decreased confidence. Client stated fear of failure has lead to avoidance of social situations which increases client's social anxiety. Client agreed with peers that in order to move past failure it is important to challenge one?s perspective on failure. Client seemed to benefit from increased awareness of how fear of failure can impact mental health. Engaged and positive during the group activity. Client progressing AEB his increased participation in group discussions despite his social anxiety. Will continue IOP tx to further decrease social anxiety, increase distress tolerance skills, and reduce negative thoughts. Narrative Note: []
--- NOTE | 2019-08-05 11:15 | BH.SGPN.GN ---
Behaviors/Verbalizations/Mental Status: []Client alert and oriented, casually dressed and groomed. Eye contact good. Motor activity appropriate. Speech within normal limits. Affect congruent, mood anxious. Thoughts linear, logical, no signs of hallucinations or delusions. Client Response/Progress/Benefit: []Client responded well to session, participating during the group activity and willing to complete the worksheet. Client worked with the group to complete the challenge activity and client shared the positive support from the group prompted success. Client completed the fear of failure worksheet and reported that fear of failure is keeping client from ?a lot of social situations? that he could otherwise engage in. Client able to identify barriers that reinforce his fear of failure which included; thinking he is going to do something embarrassing, mind-reading, negative self-talk, avoidance, and habits. Client attentive during discussion of the different strategies to help overcome fear of failure. Group identified strategies such as; positive self-talk, affirmations, opposite action, keeping track of wins, setting smart goals, and accepting that mistakes happen. Client selected wanting to work on using positive self-talk to help client overcome fear of failure. Client appeared to benefit from learning ways to overcome fear of failure. Will continue IOP tx to further reduce social anxiety and to improve mood stability. Narrative Note: []
--- NOTE | 2019-08-05 14:28 | BH.COMM ---
Communication Note - Communication with Client Communication Note: As part of patient's phone based exposure therapy exercises, This therapist called pt as answering the phone is the next step in pt's fear ladder. Pt did well to answer the phone on the first attempt and did well to engage in a 5 minute conversation discussing his self-care plans for the evening. Pt reported plans to spend time outdoors with his dogs. Additionally, pt expressed plans to attend group tomorrow as well.
== END 2019-08-05 23:59 ==
LOC: BHIOP 09:00
PROVIDERS: Referring Provider Psychiatry & Neurology Psychiatry; Visit Provider Psychiatry & Neurology Psychiatry
DX: F31.81 Bipolar II disorder (principal); F41.8 Other specified anxiety disorders; Z79.899 Other long term (current) drug therapy
CPT/HCPCS: H0035; 90832; 90834; 90853

== ENCOUNTER 2019-08-06 09:00 | Outpatient (RCR) | payer OTHER, SELFPAY ==
[2019-08-06 00:48] VITALS: BP 104/70; PULSE 100; RESP 16; TEMP 36.4
--- NOTE | 2019-08-06 09:08 | BH.SGPN.GN ---
Behaviors/Verbalizations/Mental Status: []Client alert and oriented, casual dress, hygiene tended to. Eye contact good. Motor activity appropriate. Speech within normal limits. Affect congruent, mood depressed and anxious. Thoughts linear, logical, no signs of hallucinations or delusions. Reviewed client?s symptom tracker, no signs of suicidal ideation, plan, or intent as of today. Client Response/Progress/Benefit: []Pt responded well to session AEB pt sharing thoughts adn feelings during session and listening attentively to others. Pt reported a mental health positive as going outside with his dogs for twenty minutes. Pt stated additional mental health positive as answering a phone call yesterday which is something he hasn't done in many months. Pt reported he was most anxious while the phone was ringing and anxiety decreased once he was talking on the phone. Pt reported current stressor is starting to remember various traumatic events from his childhood that pt stated he must have repressed. Progress noted with pt doing the anxious tasks of answering his phone. Pt to continue IOP to continue working on decreasing anxiety, challenge negative thoughts, and prevent decompensation. Narrative Note: []
--- NOTE | 2019-08-06 10:08 | BH.SGPN.GN ---
Behaviors/Verbalizations/Mental Status: []Client alert and oriented, neatly dressed and groomed. Eye contact good. Motor activity appropriate. Speech within normal limits. Affect congruent, mood anxious. Thoughts linear, logical, no signs of hallucinations or delusions. Client Response/Progress/Benefit: []Client was an engaged participant throughout group session AEB client contributing thoughts during discussion, listening attentively and taking notes throughout. Client reported belief that while one cannot always control their stress ?load? one can control how they cope with it. Group identified unhealthy coping skills which included: stuffing emotions, constant ?escapism,? and substance use. Client stated people often turn to unhealthy coping skills because they are easier, learned behaviors, and hard habits to break. Group identified consequences of using unhealthy coping skills which included; problem gets worse, can increase intensity of mental health symptoms, cause guilt, and hurt relationships. Client reported it is possible to learn healthy coping skills, but it takes time and practice. Discussed the benefits of having a balance of internal and external coping skills. Client seemed to benefit from increased awareness of importance of increasing healthy coping skills and consequences of utilizing unhealthy coping skills. Client will continue IOP tx to further decrease anxiety and improve social functioning. Narrative Note: []
--- NOTE | 2019-08-06 11:10 | BH.SGPN.GN ---
Behaviors/Verbalizations/Mental Status: []Client alert and oriented, casually dressed and groomed. Eye contact fair to good. Motor activity appropriate. Speech within normal limits, quiet. Affect congruent, mood dysthymic, anxious. Thoughts linear, logical, no signs of hallucinations or delusions. Client Response/Progress/Benefit: []Client responded well to session, taking notes and engaged during discussion. Shared that he feels he does not currently have a healthy set of positive coping strategies and often utilizes distraction. Client contributed as the group discussed the different categories of coping skills which included distraction, emotional release, grounding, self-love, and thought challenging. Provided examples for each and acknowledged the importance to having a variety of coping skills. Client identified using thought challenging to challenge his perspective when feeling negative. Participated in creating a coping skills ?menu? for the five categories of coping skills. Client identified wanting to focus on improving emotional release skills this week and reducing use of avoidance. He appeared to benefit from increasing repertoire of healthy coping skills. Client progress shown by his report of improved ability to challenge distortions and engage in opposite action, but continues to struggle with managing anxiety. Will continue IOP tx to prevent decompensation, improve mood stability, and combat distortions. Narrative Note: []
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
--- NOTE | 2019-08-07 10:12 | BH.SGPN.GN ---
Behaviors/Verbalizations/Mental Status: []Client alert and orient. Appearance casual and appropriately groomed. Speech an appropriate rate and tone. Motor activity WNL. Mood dysthymic and anxious, affect congruent to mood. No evidence of delusion or hallucinations.? Client Response/Progress/Benefit: []Pt receptive of session, engaged throughout the discussion on the importance of healthy communication. Pt worked with the group to define healthy communication and indicated that this includes being able to organize and communicate thoughts using a healthy tone. Discussed benefits of healthy communications on mental health and maintaining healthy relationships which included: improved mood, increased ability to get your point across, needs are more likely to be met, increased ability to collaborate with others, and healthier relationships. Pt receptive of and appeared to benefit from psychoeducation portion discussing different styles of communication. Progress noted in pt ability to connect with materials discussed and provide increased insight. Pt noted identifying with passive communication for most things but is assertive in saying ?no? when not wanting to do things, expressed that at times this can go to the extreme and he may ?say no to everything?. Pt shared this has reinforced isolation. Pt to continue in IOP tx to continue to promote healthy change behaviors, reduce depression, and prevent decompensation. Narrative Note: []
--- NOTE | 2019-08-07 15:13 | BH.MDN ---
Multi-Disciplinary Note - Note 45-min Individual Time Started:: 09:26 Date: 08/07/19 Purpose of session/treatment goals addressed:: The purpose of this session was to address current symptoms, stressors, and treatment progress. Another goal was to guide pt through next exposure therapy exercise in which pt is to practice calling his outpatient provider to ease transition into telehealth services post discharge. Other topics included: challenging self-deprecation and negative thoughts. Eye Contact:: Fair Motor Activity:: Appropriate Appearance:: Casual Speech:: Appropriate, Soft Mood:: Anxious, Dysthymic Affect:: Congruent Thoughts:: Linear, Logical, No evidence of hallucinations/delusions noted Staff Interventions:: Therapist used active listening and asked open-ended questions to explore client's current stressors, symptoms, and perception of treatment goal progress. Therapist utilized strength?s-based approaches to discuss with client progress in exposure therapy and worked to challenge his use of minimizing and disqualifying positives. Introduced next exposure therapy exercise and worked with pt to challenge associated anxious and distorted thoughts. Provided psychoeducation on impact of negative thoughts and self-criticism on communication and managing anxiety. Reviewed benefits of exposure therapy on reducing anxiety long-term and reviewed in the moment calming skills. Client Response:: Client open to meeting with therapist and actively engaged throughout. Discussed feeling relaxed today and reported he has been spending time trying to engage in healthy distraction activities such as going outside with his dogs, walking, cleaning his fish tank, or playing video games. Went on to indicate that he has found this helpful in improving his management of trauma related triggers and shared he is able to engage in calming activities ?instead of brooding on my childhood?. Discussed recently watching the movie [id number] [email or web address] which he found to be triggering but that he was able to successfully manage these emotions without experiencing panic or suicidal thoughts. Client noted that he was able to use this as an opportunity to gain insight regarding how his past has impacted him his life now without letting himself ?brood? or ruminate. Expressed engaging in other activities to take his mind off the subject, as well as is more actively attempting to recognize and accept emotions rather than ?stuff them?. Pt shared that meditation and walks have been most helpful. Client spent time discussing with therapist the recent phone exposure exercises he has been working on to reduce anxiety around the phone and prepare for transition to telehealth. Introduced exercise for the day which was to call his outpatient therapist in session with this therapist. Pt declined willingness to do so and indicated feeling ?too anxious and uncomfortable?. He discussed feeling he does not really think he has made that much progress in exposure therapy as he still feels anxiety when talking on the phone. Expressed beliefs that he should have made more progress. Therapist worked to challenge pt on whether his expectations for himself are fair as he has successfully completed all exercises to date. Pt and therapist reviewed impacts of his self-talk on anxiety and avoidance behaviors. Pt identified typical types of comments or thoughts he might tell himself before or after a phone call. Discussed often over analyzing and feeling he ?said something stupid?. Pt and therapist worked to reframe his identified statements and thoughts as to be more motivational and encouraging. Additionally, discussed calming strategies to reduce anxieties prior to, during, and after making or receiving a phone call. Discussed using walking, drawing, or a fidget spinner to give himself something to focus on during conversation and improve ability to relax. Willing to reschedule exposure exercise for next week. Risks/Concerns:: Client denies any active suicidal ideations, plan, or intent as of 08/07/19. Progress Toward Goals/Plan:: Client appears to be making some progress in his ability to be more open with the group and is better identifying and managing trauma related triggers. He reports practicing regular meditation and is going for daily walks which is also progress. Continues to deny any suicidal ideation, plan, or intent. Some regression during session in which client became anxious and declined to complete exposure therapy session. Able to identify barriers and work with therapist on identifying calming strategies to improve anxiety management prior to completing exercise next week. Will continue IOP tx to improve mood stability, promote healthy coping skills, prevent decompensation, and reduce anxiety surrounding social skills. Time Stopped:: 10:04
--- NOTE | 2019-08-08 11:15 | BH.SGPN.GN ---
Behaviors/Verbalizations/Mental Status: []Client alert and oriented, casual dress, hygiene tended to. Eye contact fair. Motor activity appropriate. Speech within normal limits. Affect constricted, mood anxious. Thoughts linear, logical, no signs of hallucinations or delusions. Client Response/Progress/Benefit: []Pt responded well to session AEB pt listening attentively to others adn providing input during discussion at times. Pt stated when he uses passive communication it negatively impacts his self-esteem, increases his anxiety, and doesn't get his needs met. Pt worked with group to identify strategies to improve communication. Pt stated he will work on improving his communication by writing down what he wants to say to help formulate his thoughts. Pt to continue IOP to decrease anxiety, increase consistent use of skills, and prevent decompensation. Narrative Note: []
--- NOTE | 2019-08-12 07:15 | BH.MTP_ITS ---
Treatment Plan Review Date of Admission:: 06/13/19 Date of Treatment Plan Review:: 08/12/19 Admitting Diagnoses:: Bipolar 2 disorder, most recent episode depression; social anxiety disorder Current Diagnoses:: Bipolar 2 disorder, most recent episode depression; social anxiety disorder Patient's Response to Treatment:: Since beginning the IOP tx program, Pt has displayed semi-active levels of engagement in the treatment process. He has recently shown increased engagement and participation since time of talk review. Pt has additionally displayed in increase in attendance. He continues to struggle with providing verbal input to group sessions, though is improving in this area. Continues to remain an active listener, take notes, and is more improved in his engagement in experiential activities. During individual sessions, pt continues to engage in discussion, though continues to struggle with implementing skills discussed and reports ongoing skepticism regarding ability to improve sx. Pt has shown some increase in willingness to complete homework, though remains inconsistent in this area. Pt has continued to remain consistent with psychiatric medication compliance. Status of Current Problems and Symptoms: Pt has made progress in treatment compaired to last review. This is evidenced by both self-report and reduction in DSM-5 scores. Pt has seen an overall 29% reduction in scores since admission, including in areas or anxiety and depression. Pt reports increased confidence in functioning, improved ability to work through anxious thoughts and feelings, and improved ability to apply distress tolerance skills. While progress has been noted he continues to struggle with rumination and intrusive thoughts, social anxiety, and self-confidence. Recommending that he continue in IOP to prevent decompensation, maintain gains, further stabilize mood, and improve daily functioning. Problem #1 Problem Name:: Depression, SI, mood stability Status of Goals:: Partially complete. Pt is continuing to make progress on this objective. He notes a reduction in depression sx and increase in overall self- confidence. Indicates this is related to improved ability to identify and challenge cognitive distortions, as well as increased willingness to challenge himself to be more social and engage in activities he enjoys. Client reports ongoing passive thoughts of , though has seen a reduction in overall frequency and intensity of these thoughts. Obj 1- Complete. Pt reports a reduction in depressive sx and has seen reduced scores for depression on DSM-5 cross-cutting analysis. Reports continued apathy and lack of motivation at times though has improved in ability to challenge these thoughts and utilize opposite action. Obj 2- Complete with continued focus encouraged. Client can both identify and utilize healthy skills for managing sx of depression. He Reports improved use of thought challenging and opposite action, though continues to struggle with consistency in these areas. Client and therapist have been working to improve implementation of activities he finds enjoyable. Team Recommendations:: Client encouraged to continue working on this treatment goal to reinforce healthy coping skills and continue to further decrease symptoms of depression prior to discharge. Client and therapist continuing to work on thought challenging and effective communication skills. Encouraged to focus on these areas as well as self-care skills in outpatient tx following IOP discharge. Problem #2 Problem Name:: Anxiety, rumination, avoidance Status of Goals:: Partially complete. Pt is continuing to make strides in reduction of anxiety sx and has seen some improvements in ability to face situations he typically would avoid. He self-reports improved confidence, however continues to struggle with significant difficulties in social settings and continues to experience difficulties in ability to manage anxious thoughts. Obj1- Complete with continued focus encouraged. Pt reports improved ability to check-in with self and reduced avoidance of triggers, though continues to struggle in this area. Pt indicates an ability to identify healthy coping skills for in the moment anxiety, though consistency requires improvement. Continues to avoid at times. Pt still needs some work in this area. Obj 2 - Complete. Pt reports reduction in overall anxiety sx and this is further indicated by DSM-5 scores. Despite reduced sx, pt continues to struggle with significant social anxiety and avoidance. Recommended continued focus in this area following IOP discharge. Team Recommendations:: Client encouraged to continue working on this treatment goal to reinforce healthy coping skills and continue to further decrease symptoms of anxiety prior to d/c. Client recommended to continue working on avoidance through exposure therapy in outpatient counseling.
--- NOTE | 2019-08-12 10:16 | BH.SGPN.GN ---
Behaviors/Verbalizations/Mental Status: []Client alert and oriented, casually dressed and groomed. Eye contact fair to good. Motor activity appropriate. Speech within normal limits. Affect congruent, mood dysthymic. Thoughts linear, logical, no signs of hallucinations or delusions. Client Response/Progress/Benefit: []Client was attentive and engaged throughout. Participated in discussion of the quote and shared that in order to make changes in direction in life you ?need to know what you?re looking for?. Explained that lack of self-awareness can keep someone from knowing when a change is needed. The group worked together to identify barriers that may prevent choosing a new and healthier path to mental wellness which included; not wanting the change/lack of readiness, lack of motivation and willingness to put forth effort, limited support, as well as having a negative or distorted perspective. Attentive during psychoeducation on the chapters of life, providing insight to distinguishing factors in each chapter. Benefited from increased awareness and education on barriers to choosing new wellness paths and the different chapters of life experienced in taking a new path. Progress noted in pt ability to connect with materials discussed as well as utilize healthy means of coping on a more regular basis. Continues to struggle with distorted thoughts. Will continue IOP tx to further reduce anxiety and depression, promote healthy coping, while improving client?s ability to function at baseline. Narrative Note: []
--- NOTE | 2019-08-12 11:15 | BH.SGPN.GN ---
Behaviors/Verbalizations/Mental Status: []Client alert and oriented, casual dress, hygiene tended to. Eye contact good. Motor activity appropriate. Speech within normal limits. Affect congruent, mood anxious. Thoughts linear, logical, no signs of hallucinations or delusions. Client Response/Progress/Benefit: []Client was an engaged participant in group discussion, contributing to discussion at times and listened attentively to others. Client reported believes he is currently in chapter 3? as client shared he continues to engage in behaviors or coping that doesn't help him progress forward. Completed worksheet and willing to share with the group. Pt stated embracing being stuck, low comfort for change, what if thoughts, and low self-esteem are currently keeping him stuck from progress. Pt reported he will work on challenging what-if thoughts by practicing reframing at least 5 times by this Sunday. Benefited from group by identifying thoughts and behaviors that have kept her stuck and identifying goal to promote progress. Will continue in IOP to increase consistent use of healthy coping, challenge anxious thoughts and prevent decompensation. Narrative Note: []
--- NOTE | 2019-08-12 15:33 | BH.MDN_ITS ---
Multi-Disciplinary Note - Note 30-min Individual Time Started:: 09:37 Date: 08/12/19 Purpose of session/treatment goals addressed:: The purpose of this session was to assess pt current symptoms and stressors. Additional purpose was to complete treatment plan review and discuss pt perceived progress towards treatment goals, barriers maintaining anxiety and depression, as well as areas to continue to focus on moving forward in IOP treatment. Additional topics: aftercare planning Eye Contact:: Good Motor Activity:: Appropriate Appearance:: Casual Speech:: Appropriate, Soft Mood:: Anxious, Dysthymic Affect:: Congruent Thoughts:: Linear, Logical, No evidence of hallucinations/delusions noted Staff Interventions:: Therapist asked open-ended and furthering questions to elicit information on pt current symptoms, stressors, and perceptions of treatment goal process. Applied strength?s-based approaches to promote self- efficacy, aid pt in identifying strengths and areas of progress, and continue to promote gains. Therapist utilized [place] techniques to identify areas for continued growth, potential barriers, and small goals to promote application of healthy change behaviors. Reviewed DSM cross-cutting scales with patient. Client Response:: Pt receptive of session and open to reviewing progress in treatment thus far. Pt reports he has noticed improved ability to better regulate his emotions and prevent escalating to panic through use of thought challenging, meditation, and identifying distortions. Pt reports feeling he has not made as significant of progress as he might have like but still feels he can see a decrease in symptoms of anxiety and depression. Indicates improved ability to identify warning signs and triggers for anxiety, however struggles to consistently use calming skills and continues to revert to safety behaviors of avoidance on occasion. Pt reports continuing to work on communication with others and believes that he is getting better at reducing anxiety when it comes to completion of his exposure therapy exercises. Reports taking time to step back and calm himself before as well as try to find a small bit of humor in each experience. Pt reports that he would like to continue to work on improving his ability to consistently manage intrusive thoughts causing anxiety and depression. Receptive of moving to individual outpatient level of care on 08/21/19 given pt length of time in IOP program and progress made. Risks/Concerns:: No risks or concerns noted. Denies SI, plan, or intent as of this date 08/12/19 Progress Toward Goals/Plan:: Progress noted per pt report. Pt completed DSM cross-cutting scales as this is week 8 of IOP treatment. When compared to DSM scores on admission pt showed 29% reduction in symptoms including depression, a nxiety, and agitation. Pt reports increased confidence in functioning, improved ability to work through anxious thoughts and feelings, and improved ability to apply distress tolerance skills. While progress has been noted he continues to struggle with rumination and intrusive thoughts, social anxiety, and self- confidence. Recommending that he continue in IOP to prevent decompensation, maintain gains, further stabilize mood, and improve daily functioning. Time Stopped:: 10:05
--- NOTE | 2019-08-14 09:01 | BH.SGPN.GN ---
Behaviors/Verbalizations/Mental Status: []Client alert and oriented, casual dress, hygiene tended to. Eye contact fair. Motor activity appropriate. Speech within normal limits. Affect constricted, mood depressed. Thoughts linear, logical, no signs of hallucinations or delusions. Reviewed client?s symptom tracker, pt indicates a 3/5, with 5 being severe, for suicidal ideation and 1/5 for suicidal intent. Informed pt's IOP individual therapist. Client Response/Progress/Benefit: []Pt responded well to session as evidenced by pt openly sharing thoughts and feelings and listened attentively to peers. Pt identified a mental health positive as getting all his home responsibilities done yesterday. Pt stated he is looking forward to a video game being released [employer], which he stated will be a healthy distraction. Pt reported his anxious symptoms are improving, but stated his depressive symptoms have increased recently. Pt reported the past couple of day she has had suicidal thoughts. Pt identified trigger to increased depressive symptoms to be thinking more about his future in regards to career path and the unknown of the future because of coronavirus. Pt seemed to benefit from support from peers. Pt to continue IOP to increase healthy coping, challenge distorted thoughts and prevent decompensation. Narrative Note: []
--- NOTE | 2019-08-14 10:13 | BH.SGPN.GN ---
Behaviors/Verbalizations/Mental Status: []Client alert and oriented, casual appearance. Eye contact good. Motor activity appropriate. Speech within normal limits. Affect congruent, mood dysthymic. Thoughts linear, logical, no signs of hallucinations or delusions. Client Response/Progress/Benefit: []Client responded well to session, contributing to discussion and engaged during the activity. Attentive during discussion on the quote and shared without change you're insane because you keep doing the same thing. Group identified the benefits of change which included: personal growth, solving problems, improving mental health, getting out of bad circumstances, and getting unstuck. Worked with the group to identify barriers to change, which included: uncomfortable emotions such as anxiety, lack of motivation, lack of energy, external variables, and negative thinking. Client participated along with group in activity where they identified and discussed the emotions related to change. Client gave an example of a time when he felt excited about change and recognized that not all change is negative. Benefited from increased awareness and understanding of emotions, benefits, and barriers related to change. Will continue IOP tx to further decrease intensity and duration of symptoms as well as reinforce healthy coping skills. Narrative Note: []
--- NOTE | 2019-08-14 11:19 | BH.SGPN.GN ---
Behaviors/Verbalizations/Mental Status: []Client alert and oriented, casually dressed and fair grooming. Eye contact fair to good. Motor activity appropriate. Speech within normal limits. Affect congruent, mood anxious and dysthymic. Thoughts linear, logical, no signs of hallucinations or delusions. Client Response/Progress/Benefit: []Client was an active participant AEB client providing some input during discussion and listening to peers attentively. Client engaged during discussion on the change process as well as weighing the pros and cons associated with change. Client benefited from learning to work through pros/cons of personal changes they are considering through use of decisional balance sheet. Identified a change he wants to make is being able to set boundaries and cut toxic people from his life. Client able to begin working on identifying the pros and cons of this change. Client stated he is still unsure if he is completely ready to make the change as he is still learning to process and cope with some of his past trauma. Did well to work with group to identify strategies for overcoming resistance to change. Recommended continued IOP tx to challenge distortions, increase consistent application of skills, and prevent decompensation. Narrative Note: []
--- NOTE | 2019-08-14 15:12 | BH.MDN_ITS ---
Multi-Disciplinary Note - Note 30-min Individual Time Started:: 12:18 Date: 08/14/19 Purpose of session/treatment goals addressed:: The purpose of this session was to address current symptoms, stressors, and treatment progress, as well as assess for risk regarding pt increased symptom tracker scores. Another goal was to guide pt through another attempt at next exposure therapy exercise pt in which pt is to practice calling his outpatient provider to ease transition into telehealth services post discharge. Other topics included: challenging self- deprecation and affirmational statements. Eye Contact:: Good Motor Activity:: Appropriate Appearance:: Casual Speech:: Appropriate, Soft Mood:: Anxious, Dysthymic Affect:: Full Thoughts:: Linear, Logical, No evidence of hallucinations/delusions noted Staff Interventions:: Therapist used active listening and asked open-ended questions to explore client's current stressors, symptoms, and further assess for risk. Therapist utilized strength?s-based approaches to discuss encourage and support pt in completion of next exposure therapy exercise. Worked with pt to challenge distorted thoughts and reframe negative perspective. Provided supportive feedback and encouragement as well as guided pt through calming skills. Client Response:: Client met with this therapist to complete next phone exposure exercise as well as further assess for risk as he had indicated a score of 3 for SI and 1 for intent on today's daily symptom tracker. Client expressed that he has no active SI, plan, or intent at this time. Indicated that the thoughts last night were intrusive and that he had been thinking about his plans for the future which again increased anxiety and reinforced thoughts of hopelessness and helplessnes. Client able to identify that these thoughts are just thoughts and the specific distortions they fall into. Expressed that he often relies on distraction during these times which is somewhat helpful but does not completely improve his mood or reduce passive suicidal thoughts. Denies use of affirmational statements as pt indicated these feel forced or fake. Reviewed importance of starting with saying small realistic affirmations during times in which he is calm to improve comfort and make them feel more natuarl. Additionally, pt reports not reaching out to supports at that time or engaging in mindfulness strategies. Reports willingness to reach out to a support or go for a walk in order to calm himself and turn his thoughts to more positive things. Pt agreeable to plan. Remainder of session was spend completing the next exposure therapy exercise of calling his outpatient therapist to schedule first outpatient teletherapy session. Reported some anxiety about doing so and worked with therapist to use deep breathing and self-coaching statements to ease an xiety. Pt did well to successfully complete the exposure exercise and worked with therapist to reflect upon wins in completing the exercise. Noted that he did not feel bad or experience self-deprecating thoughts afterwards. Shared that he additionally was able to answer questions asked and ask for clarification during discussion which wis rogress for him as well. Pt agreeable to completing another phone call next week to further improve compfort with conversations via the telephone. Risks/Concerns:: Pt reported a score of 3/5 for suicidal ideation on daily symptom tracker this morning. Indicated having intrusive thoughts about previous night related to feeling he will have an unsucessful future. Denies current ideation, plan, or intent and was willing to safety plan for the weekend. Progress Toward Goals/Plan:: Some regression. Pt reports increased intrusive thoughts of , however denies active plan or intent. Indicates that this was new last night since several weeks ago. Shared that he has mainly been using distraction to cope and has not attempted reaching out or using thought challenge or affirmational statements. Some progress in ability to using calming skills to reduce anxiety AEB self-report and ability to complere exposure exercise in session. Additionally reports consistent application of meditation throughout the day. Will continue IOP tx to improve mood stability, promote healthy coping skill application, prevent decompensation, and reduce anxiety to tranbsistion to outpatient teletherapy.
--- NOTE | 2019-08-19 09:02 | BH.SGPN.GN ---
Behaviors/Verbalizations/Mental Status: []Client alert and oriented, fair to appropriately groomed and casual in appearance. Eye contact good. Motor activity appropriate. Speech within normal limits, quiet. Affect congruent, mood anxious and dysthymic. Thoughts linear, logical, no signs of hallucinations or delusions. Reviewed daily symptom tracker and client reports suicidal ideation as 2/5 which is consistent with baseline, denies plan, or intent at this time. Client Response/Progress/Benefit: []Pt was a semi-active participant in group discussion AEB listening to peers and openly processing with the group, reduced input compared to prior groups. Emotion for today is tired and shared that this is due to not getting much sleep which was his stressor for the day. Pt identified mental health positive as being able to work on thought challenge homework but struggled with this as he waited until late at night to do so and struggled with focusing as a result. Identified that lack of energy may have impacted his ability to effectively reframe identified negative thoughts. Shared plans to work more on this homework over the next two days. Pt stated additional mental health positive as being able to get to group and not oversleep despite limited sleep the previous night. Progress noted in pt ability to more actively contribute to group; however continues to struggle with consistent application of healthy coping skills to reduce depression. Continues to struggle with self-deprecation. Continued IOP tx recommended to continue application of healthy coping skills, increase consistent skill application, improve thought challenging, and prevent decompensation. Narrative Note: []
--- NOTE | 2019-08-19 10:18 | BH.SGPN.GN ---
Behaviors/Verbalizations/Mental Status: []Client alert and oriented, disheveled appearance. Eye contact fair. Motor activity appropriate. Speech within normal limits. Affect congruent, mood euthymic. Thoughts linear, logical, no signs of hallucinations or delusions. Client Response/Progress/Benefit: []Client responded well to session and contributed to discussion of the quote, sharing ?we might not even know the situation is not in our control.? Client connected with the group topic of crisis and helped to define crisis. Group identified examples of potential crises to include loss of a loved one, relationship problems, divorce, job loss, the current COVID-19 pandemic, and medical problems. Client agreed with peers that anything can lead to a crisis. Connected with discussion on how coping with external crises by using unhealthy coping skills could result in a personal crisis. Group identified unhealthy coping skills to include; using substances, denial, avoidance/isolation, anger outbursts, suicidal thoughts, and overscheduling. Group reported that it is important to have awareness of warning signs which can prevent hitting ?rock bottom.? Group identified warning signs for crisis and Client completed the personal warning signs worksheet. Identified crisis warning signs to included; eating less, ignoring and isolating, and negative thinking. Benefited by increasing awareness of crisis and personal warning signs. Progress noted in client?s report of less avoidance behaviors. Will continue IOP tx throughout the week to further reduce intensity of symptoms and reinforce healthy coping skills. Narrative Note: []
--- NOTE | 2019-08-21 09:00 | BH.SGPN.GN ---
Behaviors/Verbalizations/Mental Status: []Client alert and oriented, casual dress, fair hygiene. Eye contact fair. Motor activity appropriate. Speech within normal limits. Affect congruent, mood anxious. Thoughts linear, logical, no signs of hallucinations or delusions. Client Response/Progress/Benefit: []Pt responded well to session as evidenced by pt listening attentively to others and openly sharing thoughts and feelings. Pt reported a mental health positive as getting a healthy amount of sleep two nights ago. Pt stated it is a little freaked out that today is his last day in IOP. Pt reported he is most worried about not having structure and routine now that the program will be over for him. Pt stated he has progressed with being more open about his feelings and has increased self-awareness of his unhealthy coping skills and thoughts. Pt admitted he needs to continue to work on application of his skills. Pt seemed to benefit from reflecting on progress since starting IOP. Pt is to discharge from [facility] today. Narrative Note: []
--- NOTE | 2019-08-21 10:11 | BH.SGPN.GN ---
Behaviors/Verbalizations/Mental Status: []Pt eye contact good, casually dressed, motor activity appropriate, speech normal rate and tone, mood anxious and dysthymic, congruent affect, thoughts linear and intact, no evidence of delusions or hallucinations. Client Response/Progress/Benefit: []Client was a mostly active participant AEB completing worksheet and listening attentively to peers. Client worked with the group to define anger and its causes, as well as the potential consequences of unhealthy management of anger. These included: losing relationships, guilt, damaged property, increased rumination, and other?s avoiding us. Provided some examples throughout. Pt worked with group to review commonly expressed anger responses and shared that his common anger response includes: arguing, becoming more tense, ignoring, isolating, becoming more rude, and breaking things. Shared that he has recently been making efforts to better cope with anger by setting boundaries and using meditation. Client appeared to benefit from psychoeducation on the negative impacts of unmanaged anger and increasing self-awareness of how own anger signs have changed since he last assessed in this group. Progress noted in client increased ability to identify and challenge distortions though continues to report difficulties with consistency of skill application. Will discharge from [facility] tx today given progress made and transition to individual outpatient treatment. Narrative Note: []
--- NOTE | 2019-08-21 14:02 | BH.MDN_ITS ---
Multi-Disciplinary Note - Note 60-min Individual Time Started:: 11:31 Date: 08/21/19 Purpose of session/treatment goals addressed:: Purpose of session was to assess pt's current symptoms and stressors. Another goal was to identify areas progress and strategies for addressing ongoing barriers to progress, as well as reviewed aftercare plan. Additional topics included: completing final exposure therapy exercise. Eye Contact:: Good Motor Activity:: Appropriate Appearance:: Casual Speech:: Appropriate Mood:: Euthymic, Anxious Affect:: Congruent Thoughts:: Linear, Logical, No evidence of hallucinations/delusions noted Staff Interventions:: Therapist used open-ended questions to elicit information and further explore client's thoughts and perception of personal progress throughout IOP program. Therapist reviewed with pt his personal supports, warni ng signs, and coping skills aimed at continuing to promote gains and prevent setbacks. Therapist discussed aftercare plan with client and used strengths- perspective to highlight and empower client on the goals client accomplished. Therapist discussed the benefits of ongoing maintenance and use of daily coping skills. Handed out and reviewed DSM-scales. Provided support as pt completed his final exposure therapy session. Client Response:: Pt receptive of session and engaged throughout. He reports feeling he has made progress since beginning IOP tx, specifically in the area of increased self-awareness and anxiety management. Pt discussed feeling a little anxious about discharging from the IOP program as this means he will receiving his therapy solely via telehealth and is still working to be more comfortable when speaking on the phone. Additional anxiety expressed in finding positive ways to fill the gap in time in which he would normally have been in group. Pt w as receptive of addressing and challenging his concerns. Initially struggle to see areas of improvement in his ability to address and manage phone related anxiety. With assistance, pt expressed improved willingness to complete exposure exercises and reduced anxiety in doing so. Shared using positive self-talk, focusing on his breath, and taking things one moment at a time as skills most helpful in remaining calm during phone calls. Shared he continues to struggle to celebrate his accomplishments and would like to focus more on allowing himself to feel proud when accomplishing small goals. Did well to discuss with therapist additional areas of progress in treatment which included increased ability to identify and begin challenging negative thoughts, increased awareness of behaviors that reinforce anxiety and depression, as well as increased engagement in activities he enjoys. Pt reports taking more regular walks with his dog. Able to identify that spending time with his pets, meditation, and other activities could fill the time previously spent in IOP group. Expressed plans to continue to work on improving communication with her supports, improve consistent skill application, and use more affirmations following discharge. Pt willing to complete final exposure exercise of calling [facility]. Risks/Concerns:: No risks or concerns noted. Pt denies any active SI, plan, or intent as of this date 08/21/19. Progress Toward Goals/Plan:: Progress noted. Pt completed DSM cross-cutting scales which showed a 29% reduction in symptoms. Noted reductions in intrusive thoughts, avoidance, anxiety, and depression. Pt is displaying progress in ability to use opposite action, communicate with supports, and practice self- care. Increased ability to identify trauma related and emotional triggers and is actively working to process and begin setting boundaries as well as applying distress tolerance skills to reduce associated anxiety. Increased application of ERP skills, increased socialization and self-care, decreased depression, and increase in healthy coping skills. Continues to struggle with self-confidence and anxiety however decreased intensity, frequency, and duration. Given pt progress, he is recommended to discharge to individual outpatient counseling at this time. Pt currently connected with [facility] for [facility] and counseling. Next psychiatry appt. is 08/29/19 with Kirsty Gudino and 08/27 for outpatient telehealth with Chauncey Chandler for counseling. Time Stopped:: 12:34
--- NOTE | 2019-08-21 14:44 | BH.DS ---
Discharge Summary - Demographics Date of Admission:: 06/13/19 Discharge Date: 08/21/19 Presenting Problems at Admission:: Patient is a 23-year-old single male who was referred to the [facility] intensive outpatient program by his outpatient counselor due to worsening depression and anxiety. Reports having suicidal ideation at the time of referral. Patient reports hx of chronic depression and anxiety, though does not typically identify a trigger for worsening sx. Pt states recently his mood and depression got so bad that he spent 5 days barely getting out of bed except to feed his dogs and missed several days of college class as a result. Hx of panic attacks. Reports his biggest stress now is school and some financial stress. Hx of chronic SI. Reports last S.I. one week ago. Reports earlier this month he had a plan to run in front of a train or hang himself with a belt. He states that it has been active at times in the past few weeks where he looks up online how 1 dies with certain methods of suicide. He says that now it does not feel active. Dogs and mother are protective factors. Currently endorses decreased appetite, hopelessness, helplessness, irregular sleep, anhedonia, low motivation, fatigue, isolation, poor concentration, SI, and ruminating thoughts causing anxiety. Current sx impacting occupational, social, and daily functioning. Discharge Diagnoses:: Bipolar 2 disorder, most recent episode depression; social anxiety disorder Reason for Discharge:: Client has demonstrated significant progress towards treatment goals as shown by self-report of reduced depression and anxiety as well as reduction on scores of DSM-5 cross-cutting analysis. Reports improved mood stability. Client no longer meets criteria for [facility] level of care and is recommended to step down to individual outpatient treatment at this time. - Treatment Progress During Treatment & Response: Client responded well to treatment as shown by overall consistent attendance, significant improvement in comfort to provide participation in both group activities and discussion, participation in individual sessions, and reduction of DSM-5 symptoms. Client started off quiet reporting reluctance to engage in group sessions and skeptical of his ability to manage anxiety in the social setting. With time and use of calming as well as opposite action skills, he became more engaged and comfortable within the group. Client often provided insight to discussion, joked others, and took notes during group sessions. In individual sessions, client was open with his thoughts and concerns, receptive to learning new coping skills, willing to challenge his own perspective, and was engaged in the treatment process. Client struggled throughout admission with overall consistency of application of coping skills outside of group, specifically that of self-care and practicing distress tolerance skills to prevent engagement in avoidance behaviors. He was motivated throughout treatment however to complete all assigned homework. Pt noted knowing these skills are beneficial but struggle to actively utilize positive self-talk, opposite action, and mindfulness techniques when struggling with anxiety and negative thoughts. Client self-identified progress as less avoidance, increased communication with supports, and decreased negative thoughts. At discharge, client?s DSM-5 symptom scores decreased by 29%. Client?s DSM-5 scores for depression decreased, from 6/8 at admission to 4/8 at discharge. Additionally, client?s thoughts of harming self decreased from admission to discharge going from 07/08 to 05/10. Client?s anxiety has decreased since admission as well going from 02/15 to 612 at discharge. Client recognizes he will continue to experience stressors throughout life, but reports improved ability to cope with these stressors and importance of consistent treatment and skill application. Issues Still to be Addressed:: Client has made significant strides since starting IOP as shown by reduced symptoms and improved mood stability. However, client can continue to benefit from ongoing counseling to reinforce healthy coping skills, manage triggers for anxiety and distorted thoughts, as well as continue to increase communication and boundary setting skills. Client can continue to benefit from ongoing work on utilizing opposite action to prevent reverting back to isolation and avoidant behaviors. Client has reported ongoing issues with self-esteem related to worry about the future and past trauma.. Client would benefit from ongoing focus on self-confidence and self-compassion. Discharge Recommendations/Instructions:: Pt currently connected with counseling center for psychiatry and counseling. Next psychiatry appt. is 08/29/19 with Kirsty Gudino and 08/27 for outpatient telehealth with Chauncey Chandler for counseling. Discharge Handout: Complete Discharge Handout with client on aftercare options and continuity of care.
--- NOTE | 2019-08-21 14:45 | BH.IGGP_ITS ---
Aftercare Plan - Demographics Treatment End Date:: 08/21/19 Psychiatrist:: Maribel Gaitan Psychiatrist Office #:: [phone] [employer] [facility] Therapist:: Loraine Geronimo Therapist Phone #:: [phone] - Medications Home Medications: Home Medications Ergocalciferol (Vitamin D2) [Vitamin D2] 50,000 unit PO QWEEK 30 Days #4 cap 06/18/19 hydrOXYzine pamoate capsule [Vistaril pamoate capsule] 25 mg PO TID PRN PRN 06/18/19 Hydroxyzine Pamoate [Vistaril] 50 mg PO 4X/DAY 30 Days #120 cap 07/09/19 Lamotrigine [Lamictal] 200 mg PO DAILY #30 tab 07/23/19 Quetiapine Fumarate 200 mg PO QHS #30 tab 08/06/19 - Plan Details Progress/Aftercare Plan Details:: Client responded well to treatment as shown by overall consistent attendance, significant improvement in comfort to provide participation in both group activities and discussion, participation in individual sessions, and reduction of DSM-5 symptoms. Client started off quiet reporting reluctance to engage in group sessions and skeptical of his ability to manage anxiety in the social setting. With time and use of calming as well as opposite action skills, he became more engaged and comfortable within the group. Client often provided insight to discussion, joked others, and took notes during group sessions. In individual sessions, client was open with his thoughts and concerns, receptive to learning new coping skills, willing to challenge his own perspective, and was engaged in the treatment process. Client struggled throughout admission with overall consistency of application of coping skills ou tside of group, specifically that of self-care and practicing distress tolerance skills to prevent engagement in avoidance behaviors. He was motivated throughout treatment however to complete all assigned homework. Pt noted knowing these skills are beneficial but struggle to actively utilize positive self- talk, opposite action, and mindfulness techniques when struggling with anxiety and negative thoughts. Client self-identified progress as less avoidance, increased communication with supports, and decreased negative thoughts. At discharge, client?s DSM-5 symptom scores decreased by 29%. Client?s DSM-5 scores for depression decreased, from 6/8 at admission to 4/8 at discharge. Additionally, client?s thoughts of harming self decreased from admission to discharge going from 3/4 to 1/4. Client?s anxiety has decreased since admission as well going from 02/15 to 6 at discharge. Client recognizes he will continue to experience stressors throughout life, but reports improved ability to cope with these stressors and importance of consistent treatment and skill application. Strategies for Success:: ?Opposite Action!!! ? do what will help you, even when your brain is saying don?t do it, even when it feels uncomfortable, even when you are tempted to take the easy or avoidant way out. ?. ?Challenge negative thought patterns by trying to look at things from the other perspective. And using those thought challenge tools! ?Keep making SMART goals and checking yourself when expectations become unrealistic. Make short term goals. ?Continue to remind yourself to not skip ?keg day!? and use positive self-talk. ?Small steps to physical, mental, and emotional wellness. Check-in with yourself regularly in order to identify what may be stressing you out and allow yourself to take small breaks if you find yourself getting overwhelmed. - Appointments Appointments/Referrals to Other Services:: Pt currently connected with counseling center for psychiatry and counseling. Next psychiatry appt. is 08/29/19 with Kirsty Gudino and 08/27 for outpatient telehealth with Chauncey Chandler for counseling.
== END 2019-09-04 23:59 ==
LOC: BHIOP 09:00
PROVIDERS: Referring Provider Psychiatry & Neurology Psychiatry; Visit Provider Psychiatry & Neurology Psychiatry
DX: F31.81 Bipolar II disorder (principal); F41.8 Other specified anxiety disorders; Z79.899 Other long term (current) drug therapy; R45.851 Suicidal ideations
CPT/HCPCS: H0035; 90832; 90834; 90837; 90853